=== PATIENT | female | born 1965 | race Caucasian/White ===

== ENCOUNTER → 2020-07-03 13:57 | Outpatient (BNVA) | payer SELFPAY | PROVIDERS: Family Provider Registered Nurse; PCP Nurse Practitioner Family; Visit Provider Nurse Practitioner Family | DX: K92.1 Melena (principal) | CPT/HCPCS: 82270 ==

== ENCOUNTER → 2020-08-30 17:20 | Outpatient (BNVA) | payer SELFPAY | PROVIDERS: Family Provider Registered Nurse; PCP Nurse Practitioner Family; Visit Provider Surgery | DX: Z20.828 Contact with and (suspected) exposure to other viral communicable diseases (principal); K92.1 Melena | CPT/HCPCS: 87635 ==

== ENCOUNTER 2020-09-04 05:53 | Day surgery (SDC) | payer SELFPAY ==
[2020-09-02 10:14] VITALS: BMI 21.9
[2020-09-04 06:16] VITALS: BP 156/117; PULSE 93; RESP 18; TEMP 36; O2SAT 94
--- NOTE | 2020-09-04 06:19 | W.PM.OPSUD ---
Surgery/Procedure H&P Update DATE OF PROCEDURE: September 04, 2020 DATE H&P PERFORMED: 08/08/20 H&P UPDATE INFORMATION: I have reviewed H&P completed within last 30 days, I have examined patient prior to procedure and No changes to prior documentation PREOP DIAGNOSIS: Bleeding per rectum/constipation PRIMARY INDICATION FOR PROCEDURE: The same PLANNED PROCEDURE: Operation Date: 09/04/20 07:00 Proposed Procedures p Colonoscopy 84750 K92.1(Not Applicable) - Sunny Mathias MD
[2020-09-04] MEDS: sodium chloride 0.9% 1,000 ML 30 ML IV (06:31)
--- NOTE | 2020-09-04 06:34 | ANES.PREANE2 ---
Pre-Anesthetic Assessment Pre-Anesthetic Assessment: Height/Weight: Height 1.7 m Weight 63.503 kg Temp Pulse Resp BP Pulse Ox 96.8 F L 93 18 156/117 94 09/04/20 06:16 09/04/20 06:16 09/04/20 06:16 09/04/20 06:16 09/04/20 06:16 Preop Diagnosis: Bleeding per rectum/constipation Proposed Procedure: Operation Date: 09/04/20 07:00 Proposed Procedures p Colonoscopy 82076 K92.1(Not Applicable) - Sunny Mathias MD Was Beta Mony taken within 24 hours: N/A Last intake: Intake Last Liquid Date 09/03/20 Last Liquid Time 23:59 Last Solid Date 09/02/20 Last Solid Time 22:00 Social: Social History: Tobacco and No alcohol Exam: Pre-Anes Outpt Exam: alert, oriented x 3 and regular rate & rhythm Additional Exam Findings (including area of procedure): BBS decreased Airway: Submandibular: WNL Cervical ROM: WNL MP: 2 Dentition: Full Pulmonary: Pulmonary: COPD CV/HEM: CV/HEM: HTN GI: Comments: GI bleeding Neuropsych: Neuropsych: Anxiety Anesthetic Plan: ASA status: 3 Anesthesia: MAC Risk of > 500 ml blood loss (7ml/kg in children): No Meds/Allergies Current Medications: Current Medications Generic Name Dose Route Start Last Admin Trade Name Freq PRN Reason Stop Dose Admin Sodium Chloride 1,000 mls @ 30 ml s/hr 09/04/20 06:15 09/04/20 06:31 Sodium Chloride 0.9% IV 30 mls/hr .Q24H JUAN Administration PFSH Anesthesia PFSH: Medical History HTN (hypertension), benign Laceration of knee without foreign body Surgical History Hx of oophorectomy left Hx of skin graft Family History Family/Other Cancer breast (aunt) Denies family history of Anesthesia complication Bleeding disorder Social History Smoking and tobacco status: current every day smoker Second hand smoke exposure: Yes Alcohol intake: current Alcohol intake frequency: 3 or more drinks per day Data Anesthesia Cardiac Studies: No Data to Display
[2020-09-04 07:14] VITALS: BP 138/98; PULSE 93; RESP 18; TEMP 36.5; O2SAT 97
[2020-09-04 07:27] VITALS: BP 171/105; PULSE 92; RESP 18; O2SAT 99
--- NOTE | 2020-09-04 07:41 | ANE.PACU2 ---
Inpatient post-anesthesia follow up: Airway intact: Yes Vital signs: Temperature 97.7 F Pulse Rate 92 Respiratory Rate 18 Blood Pressure 171/105 Pulse Oximetry 99 Oxygen Delivery Me thod Room Air Oxygen Flow Rate Fraction of Inspir ed Oxygen Hydration adequate: Yes Nausea and vomiting: No Pain level: 1 Mental status: Baseline
== END 2020-09-04 07:47 | disposition home or self-care (01) ==
PROVIDERS: Family Provider Registered Nurse; PCP Nurse Practitioner Family; Visit Provider Surgery
PROC: 0DJD8ZZ Inspection of Lower Intestinal Tract, Via Natural or Artificial Opening Endoscopic (ICD-10-PCS; CPT 45378; principal; 2020-09-04 07:00)
DX: K62.5 Hemorrhage of anus and rectum (principal); K59.00 Constipation, unspecified; K57.30 Diverticulosis of large intestine without perforation or abscess without bleeding; J44.9 Chronic obstructive pulmonary disease, unspecified; I10 Essential (primary) hypertension; F41.9 Anxiety disorder, unspecified; F17.210 Nicotine dependence, cigarettes, uncomplicated
CPT/HCPCS: 12345; 45378; J2704; J7030

== ENCOUNTER → 2021-08-06 11:10 | Outpatient (BNVA) | payer SELFPAY | PROVIDERS: Family Provider Registered Nurse; PCP Registered Nurse; Visit Provider Registered Nurse | DX: E78.5 Hyperlipidemia, unspecified (principal); I10 Essential (primary) hypertension | CPT/HCPCS: 80053; 80061; 85025 ==

== ENCOUNTER 2021-11-03 13:53 | Outpatient (CLI) | payer SELFPAY ==
--- NOTE | 2021-11-03 14:12 | MM_ITS ---
WS: [id number] Bilateral screening 3D tomosynthesis digital mammogram, 11/03/2021 Clinical Data: Z12.31 - Encounter for screening mammogram for malignant ... Comparison: 04/11/2019. Findings: The breast parenchymal pattern shows fibroglandular tissue. No spiculated masses or clustered calcif ications are seen. There are no secondary signs of carcinoma. MM/[place] [id number] Impression: 1. Negative bilateral mammogram unchanged. 2. Recommend annual screening mammograms. BIRADS: 1-Negative FOLLOW UP: 10 Month Follow-up The CAD photo checker and assembler was used.
== END 2021-11-03 13:54 | disposition home or self-care (01) ==
LOC: RADSHAW 13:58
PROVIDERS: PCP Registered Nurse; Visit Provider Registered Nurse
DX: Z12.31 Encounter for screening mammogram for malignant neoplasm of breast (principal)
CPT/HCPCS: 77063; 77067

== ENCOUNTER → 2022-06-02 14:56 | Outpatient (BNVA) | payer SELFPAY | PROVIDERS: PCP Registered Nurse; Visit Provider Registered Nurse | DX: I10 Essential (primary) hypertension (principal); E78.5 Hyperlipidemia, unspecified; Z71.85 Encounter for immunization safety counseling; F17.210 Nicotine dependence, cigarettes, uncomplicated; Z23 Encounter for immunization | CPT/HCPCS: 80053; 80061; 85025 ==

== ENCOUNTER 2023-10-07 19:51 | Inpatient (IN) | payer MEDICAID, SELFPAY ==
[2023-10-07] VITALS (8 sets, daily range): BP systolic 98–130; BP diastolic 56–112; PULSE 95–113; RESP 15–21; TEMP 36.7–37; O2SAT 98–100; BMI 25.8
--- NOTE | 2023-10-07 19:55 | XRR_ITS ---
PROCEDURE INFORMATION: Exam: XR Chest Exam date and time: 10/07/2023 8:16 PM Age: 58 years old Clinical indication: Cough TECHNIQUE: Imaging protocol: Radiologic exam of the chest. Views: 1 view. COMPARISON: No relevant prior studies available. FINDINGS: Lungs: No focal consolidation. Pleural spaces: No evidence of pneumothorax. No evidence of pleural effusion. Heart/Mediastinum: Cardiomediastinal silhouette is within normal limits. Bones/joints: No evidence of acute osseous abnormality. XR/XR chest 1V portable [id number] IMPRESSION: 1. No acute cardiopulmonary abnormality.
--- NOTE | 2023-10-07 19:55 | ECG_ITS ---
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 Measurements Intervals [place] Rate: 92 P: 49 MI: 192 QRS: 56 QRSD: 84 T: 67 QT: 377 QTc: 467 Interpretive Statements SINUS RHYTHM No previous ECG available for comparison Electronically Signed On 10-08-2023 10:02:34 PURCHASING MANAGER/SALES by Marcelino Tracy M.D. [id number]
--- NOTE | 2023-10-07 19:57 | W.ED.NAVMDI ---
HPI - Nausea/Vomiting/Diarrhea General: Chief complaint: Nausea/Vomiting/Diarrhea Stated complaint: N/V Time Seen by Provider: 10/07/23 19:51 Source: patient and EMS Mode of arrival: EMS Limitations: no limitations History of Present Illness: 58-year-old female states she has not felt well the last 3 days she states she has had cough along with nausea vomiting and fatigue with bodyaches she denies any fevers. States she had some slight chest pain as well but mainly when she coughs it is sharp in nature she denies any pain currently she had no belly pain. Denies any diarrhea. Associated nausea: Yes Associated symtoms: Reports chest pain and nausea; Denies dysuria or headache(s) Review of Systems Const: Denies: fever(s) or chills ENMT: Denies: throat pain or dental pain Card: Reports: chest pain Resp: Reports: dyspnea and non-productive cough GI: Reports: nausea and vomiting; Denies: abdominal pain or diarrhea : Denies: dysuria Musc: Denies: neck pain or back pain Skin/Breast: Denies: rash Neuro: Denies: headache(s) PFSH ED PFSH: Medical History Diverticulosis Hematochezia Laceration of knee without foreign body HTN (hypertension), benign Surgical History Hx of oophorectomy left Hx of skin graft Family History Family/Other Cancer breast (aunt) Denies family history of Anesthesia complication Bleeding disorder Social History Smoking and tobacco/nicotine status: current every day tobacco/nicotine user Second hand smoke exposure: Yes Alcohol intake: current Alcohol intake frequency: 3 or more drinks per day Substance/Drug Use: never Adopted: No Caregiver/support person: No Lives independently: Yes service: No Current occupational status: employed Do you think of yourself as: Straight/Heterosexual Current gender identity: Female Physical Exam Const: COMMON NORMALS: no acute distress, patient oriented x3 and healthy appearing HENMT: COMMON NORMALS: normocephalic and atraumatic HEAD & SCALP: normocephalic and atraumatic Neck/C-Spine: COMMON NORMALS: full ROM and supple Chest: COMMONS NORMALS: normal inspection of the chest and normal palpation of entire chest wall Resp: COMMON NORMALS: normal respiratory effort, No retractions, No use of accessory muscles and clear to auscultation bilaterally AUSCULTATION: clear to auscultation bilaterally Cardio: COMMON NORMALS: regular rate, regular rhythm and No murmurs present (Cardio) RATE: regular rate RHYTHM: regular rhythm GI: COMMON NORMALS: Normal to inspection, nondistended, normoactive bowel sounds present, Soft to palpation, non-tender and no masses PALPATION: Yes Soft to palpation Extremity: COMMON NORMALS: normal to inspection and full ROM Neuro: COMMON NORMALS: patient oriented x3, moves all extremities and no focal motor deficits Psych: COMMON NORMALS: mental status grossly normal, Normal thought process present and cooperative THOUGHT PROCESS: Normal thought process present Skin: COMMON NORMALS: no rashes or lesions noted and no wounds GENERAL SKIN EXAM: no rashes or lesions noted Course Vital Signs: Vital signs: Vital Signs Temperature 98.5 F 10/08/23 04:30 Pulse Rate 89 10/08/23 10:30 Respiratory Rate 20 H 10/08/23 10:30 Blood Pressure 85/43 10/08/23 10:30 Pulse Oximetry 100 10/08/23 10:30 Oxygen Delivery Me thod Room Air 10/08/23 06:00 MDM - Nausea/Vomiting/Diarrhea Medical Decision Making Patient presents here with nausea vomiting she is found to be quite hyponatremic likely due to her vomiting her abdominal exam here is benign white count is normal I spoke to the hospitalist will admit at this time to the ICU. Patient is been stable while here. Medical Records I reviewed the patient's medical records. Lab Data I reviewed the patient's lab results. 10/08/23 03:56 10/08/23 08:13 Radiology Impressions Chest X-Ray 10/07/23 19:55 IMPRESSION: 1. No acute cardiopulmonary abnormality. Head CT 10/07/23 22:16 IMPRESSION: No acute intracranial abnormality. Further evaluation with MR may be considered if there is persistent suspicion for early stroke or other significant abnormality. Laboratory Results WBC 6.73 10^3/uL (3.29-11.43) 10/07/23 20:11 RBC 3.18 10^6/uL (3.85-5.65) L 10/07/23 20:11 Hgb 12.10 g/dL (11.27-16.99) 10/07/23 20:11 Hct 31.3 % (36-47) L 10/07/23 20:11 MCV 98.4 fl (85-98) H 10/07/23 20:11 MCH 38.1 pg (27-33) H 10/07/23 20:11 MCHC 38.7 g/dL (30-55) 10/07/23 20:11 RDW 11.5 % (12.1-15.1) L 10/07/23 20:11 Plt Count 128 10^3/cmm (157-399) L 10/07/23 20:11 MPV 9.9 fL (7.4-10.4) 10/07/23 20:11 Neut % (Auto) 74.1 % 10/07/23 20:11 Lymph % (Auto) 15.2 % 10/07/23 20:11 Clinch % (Auto) 9.7 % 10/07/23 20:11 Eos % (Auto) 0.3 % 10/07/23 20:11 Baso % (Auto) 0.1 % 10/07/23 20:11 Neut # (Auto) 4.99 10^3/uL (1.8-7.7) 10/07/23 20:11 Lymph # (Auto) 1.0 10^3/uL (0.8-4.8) 10/07/23 20:11 Clinch # (Auto) 0.7 10^3/uL (0.2-0.9) 10/07/23 20:11 Eos # (Auto) 0.0 10^3/uL (0.0-0.8) 10/07/23 20:11 Baso # (Auto) 0.0 10^3/uL (0.0-0.1) 10/07/23 20:11 Nucleated RBC % (auto) 0 % 10/07/23 20:11 Nucleated RBCs # 0.0 /100WBC 10/07/23 20:11 PT 12.50 SECONDS (12.1-14.9) 10/07/23 20:11 INR 0.91 (0.8-1.2) 10/07/23 20:11 Sodium 106 mmol/L (136-145) L* 10/07/23 20:11 Potassium 3.4 mmol/L (3.5-5.1) L 10/07/23 20:11 Chloride 64 mmol/L (98-107) L 10/07/23 20:11 Carbon Dioxide 23 mmol/L (22-29) 10/07/23 20:11 Anion Gap 22.4 (5-19) H 10/07/23 20:11 BUN 22 mg/dL (6-20) H 10/07/23 20:11 Creatinine 0.8 mg/dL (0.5-0.9) 10/07/23 20:11 GFR Calculation 73.4 mL/min (90-130) L 10/07/23 20:11 Glucose 74 mg/dL (65-115) 10/07/23 20:11 Calculated Osmolality 224 mOsm/kg (285-295) L 10/07/23 20:11 Calcium 8.7 mg/dL (8.5-10.5) 10/07/23 20:11 Total Bilirubin 0.8 mg/dL (0.15-1.2) 10/07/23 20:11 AST 172 U/L (0-32) H 10/07/23 20:11 ALT 105 U/L (0-33) H 10/07/23 20:11 Alkaline Phosphatase 165 U/L (35-105) H 10/07/23 20:11 Creatine Kinase 106 U/L (26-192) 10/07/23 20:11 Creatine Kinase 116 U/L (26-192) 10/07/23 20:11 Troponin T Baseline 20 ng/L (0-10) H 10/07/23 20:11 Total Protein 7.0 g/dL (6.6-8.7) 10/07/23 20:11 Albumin 4.2 g/dL (3.5-5.2) 10/07/23 20:11 Globulin 2.8 g/dL (1.3-4.6) 10/07/23 20:11 Lipase 52 U/L (13-60) 10/07/23 20:11 Hepatitis A IgM Ab Non-reactive (Nonreactive) 10/07/23 20:11 Hep Bs Antigen Non-reactive (Nonreactive) 10/07/23 20:11 Hep B Core IgM Ab Non-reactive (Nonreactive) 10/07/23 20:11 Hepatitis C Antibody Non-reactive (Nonreactive) 10/07/23 20:11 Influenza Type A Ag negative (Negative) 10/07/23 20:21 Influenza Type B Ag negative (Negative) 10/07/23 20:21 SARS-CoV-2 Ag (Rapid) negative (Negative) 10/07/23 20:21 All radiology interpretation(s) finalized by discharge EKG Data EKG 1: I personally reviewed and interpreted this EKG as follows: EKG interpretation date: 10/07/23 EKG interpretation time: 20:02 Interpretation: nsr hr [address] or t wave abnormalities qrs 84 qtc 426 Critical Care Time Critical Care Time: Critical Care Time: Yes Total Critical Care Time: 40 Attestation: The high probability of a clinically significant, sudden or life threatening deterioration of the patient's electrolytes/gi system(s) required my full and direct attention, intervention and personal management. The critical care time is as shown. This time is in addition to time spent performing any reported procedures but includes the following: [x] Data and vital sign review and interpretation [x] Patient assessment, examination and intervention [x] Documentation [x] Medication orders and management Discharge Plan Discharge Patient Disposition: Admitted As Inpatient Admit Provider: Chema Ayers Clinical Impression: Vomiting, Hyponatremia Condition: Stable Coding Level of Care Code ED Plant And Maintenance Technician for Wilder Barrientos
[2023-10-07] MEDS: sodium chloride 0.9% 1,000 ML 999 ML IV (20:13)
[2023-10-07] MEDS: ondansetron 2 mg/ML SDV 2 mL 4 MG IVP ×2 (20:14→23:16)
[2023-10-07 20:38] LABS: Basophils % 0.1 %; Eosinophils % 0.3 %; Mean Corpuscular Volume 98.4 fl (85-98); Nucleated Red Blood Cells % 0 %; Red Cell Distribution Width 11.5 % (12.1-15.1)
[2023-10-07 20:44] LABS: Influenza A by IFA negative (Negative); Influenza B by IFA negative (Negative); SARS Covid-2 Antigen negative (Negative)
[2023-10-07 20:48] LABS: Alanine Aminotransferase 105 U/L (0-33); Albumin Level 4.2 g/dL (3.5-5.2); Alkaline Phosphatase 165 U/L (35-105); Anion Gap 22.4 (5-19); Aspartate Amino Transferase 172 U/L (0-32); Blood Urea Nitrogen 22 mg/dL (6-20); Calcium 8.7 mg/dL (8.5-10.5); Carbon Dioxide 23 mmol/L (22-29); Chloride 64 mmol/L (98-107); Globulin 2.8 g/dL (1.3-4.6); Glomerular Filtration Rate 73.4 mL/min (90-130); Glucose 74 mg/dL (65-115); Lipase 52 U/L (13-60); Osmolality Calculated 224 mOsm/kg (285-295); Potassium 3.4 mmol/L (3.5-5.1); Total Bilirubin 0.8 mg/dL (0.15-1.2)
[2023-10-07 20:50] LABS: Sodium 106 mmol/L (136-145)
[2023-10-07 20:52] LABS: Troponin(5th) Baseline 20 ng/L (0-10)
[2023-10-07 21:14] LABS: Hematocrit 31.3 % (36-47); Lymphocytes % 15.2 %; Mean Corpuscular HGB Conc 38.7 g/dL (30-55); Mean Corpuscular Hemoglobin 38.1 pg (27-33); Mean Platelet Volume 9.9 fL (7.4-10.4); Monocytes # 0.7 10^3/uL (0.2-0.9); Monocytes % 9.7 %; Neutrophils # 4.99 10^3/uL (1.8-7.7); Neutrophils % 74.1 %; Platelet Count 128 10^3/cmm (157-399); Red Blood Count 3.18 10^6/uL (3.85-5.65); White Blood Count 6.73 10^3/uL (3.29-11.43)
[2023-10-07 21:24] LABS: Slide Review Slide Review Perform
--- NOTE | 2023-10-07 22:00 | PC.NURSE ---
Arrival to ICU: Pt arrived to ICU 10 @2200 from ER via stretcher. Continuos cardiac monitoring continued and seizure precautions initiated.
[2023-10-07 22:01] LABS: Creatine Phosphokinase 116 U/L (26-192)
--- NOTE | 2023-10-07 22:16 | CTR_ITS ---
PROCEDURE INFORMATION: Exam: CT Head Without Contrast Exam date and time: 10/07/2023 11:50 PM Age: 58 years old Clinical indication: Other: Sev hyponatremia, vomiting TECHNIQUE: Imaging protocol: Computed tomography of the head without contrast. Radiation optimization: All CT scans at this facility use at least one of these dose optimization techniques: automated exposure control; mA and/or kV adjustment per patient size (includes targeted exams where dose is matched to clinical indication); or iterative reconstruction. COMPARISON: No relevant prior studies available. RADIATION DOSE METRICS: Total DLP (mGy-cm): 1100 FINDINGS: Brain: Mild to moderate diffuse atrophy of the frontal and parietal lobes. Mild chronic microvascular cerebral parenchymal change. No obvious central pontine hypodensity. Cerebral ventricles: No ventriculomegaly. Paranasal sinuses: Visualized sinuses are unremarkable. No fluid levels. Mastoid air cells: Visualized mastoid air cells are well aerated. Bones/joints: Unremarkable. No acute fracture. Soft tissues: Unremarkable. CT/CT head wo con* [id number] IMPRESSION: No acute intracranial abnormality. Further evaluation with MR may be considered if there is persistent suspicion for early stroke or other significant abnormality.
[2023-10-07 22:29] LABS: INR 0.91 (0.8-1.2)
[2023-10-07 22:42] LABS: Troponin 5 2HR 22.25 ng/L (0-10); Troponin 5 2HR Delta 2.25 ABS# (0-10)
[2023-10-07 22:42] LABS: Creatine Phosphokinase 106 U/L (26-192)
[2023-10-07 22:49] LABS: Hepatitis A Antibody IgM Non-Reactive (Nonreactive); Hepatitis B Core IgM Non-Reactive (Nonreactive); Hepatitis B Surface Antigen Non-Reactive (Nonreactive); Hepatitis C Virus Antibody Non-Reactive (Nonreactive)
[2023-10-07 22:50] LABS: Thyroid Stimulating Hormone 1.38 uIU/mL (0.27-4.20)
[2023-10-07 22:52] LABS: Sodium 106 mmol/L (136-145)
--- NOTE | 2023-10-07 22:55 | PC.NURSE ---
Critical Sodium: Attempted to notify [facility] of critical sodium @1941. No answer, message left. Notified Dr. Ayers of critical sodium, new order to start NS @15ml/hr and wait for orders from nephrology.
[2023-10-07] MEDS: pantoprazole 40 mg SDV IVP (22:59)
--- NOTE | 2023-10-07 23:01 | P.HP_ITS ---
Providers/Chief Complaint 2 Admitting Physician: Chema Ayers Primary Care Provider: SOBEIDA Dhaliwal Chief Complaint: N/V History of Present Illness Pleasant 58-year-old lady with history of hyponatremia, previously on salt tablets but has been off of them for some time, HTN, daily EtOH, about 3 drinks per day, has been feeling unwell, has had nausea vomiting, unable to keep anything down and some diarrhea for 4 days. Mild cough. Was also complaining of some heartburn some burning chest pain in the center. Some malaise. In ER found to have severe hyponatremia, sodium 106. She received 1 L saline resuscitation. With noted some transaminitis, AST 172, ALT 105, alk phos 165, lipase was also checked was 52. TSH is WNL. She is awake, alert, provides her own history. Lucid. Denies anyheadache. EKG with sinus rhythm. Chest x-ray without acute cardiopulmonary abnormality. Review of Systems 2 Const: Denies: fever(s), chills, body aches or malaise Card: Denies: chest pain, edema, pre-syncope or dyspnea on exertion Resp: Denies: dyspnea, productive cough, change in phlegm color or hemoptysis GI: Reports: nausea, vomiting and diarrhea; Denies: abdominal pain, constipation, hematochezia or melena : Denies: flank pain, urinary frequency or hematuria Musc: Denies: back pain, joint swelling or joint redness Skin/Breast: Denies: rash or new lesions Neuro: Denies: headache(s) or confusion Endo: Denies: polyuria or polydipsia Medications/Allergies Home Medications Medication Instructions Recorded Confirmed Last Taken Type lisinopril 20 mg tablet See Rx Instructions .Route 08/17/23 10/07/23 10/06/23 Rx .COMPLEX #60 tabs hydrochlorothiazide 25 mg tablet See Rx Instructions .Route 08/20/23 10/07/23 10/04/23 Rx .COMPLEX #90 tabs metoprolol tartrate 25 mg tablet 25 mg PO BEDTIME 90 days #90 tabs 08/20/23 10/07/23 10/07/23 Rx Allergies Allergy/AdvReac Type Severity Reaction Status Date / Time No Known Allergies Allergy Verified 08/20/23 14:18 PFSH Acute 2 PFSH: Medical History Diverticulosis Hematochezia Laceration of knee without foreign body HTN (hypertension), benign Surgical History Hx of oophorectomy left Hx of skin graft Family History Family/Other Cancer breast (aunt) Denies family history of Anesthesia complication Bleeding disorder Social History Smoking and tobacco/nicotine status: current every day tobacco/nicotine user Second hand smoke exposure: Yes Alcohol intake: current Alcohol intake frequency: 3 or more drinks per day Substance/Drug Use: never Adopted: No Caregiver/support person: No Lives independently: Yes service: No Current occupational status: employed Do you think of yourself as: Straight/Heterosexual Current gender identity: Female Vitals/I&O/Wt Last Vital Signs Temp 98.6 F 10/07/23 22:15 Pulse 113 H 10/07/23 22:15 Resp 18 10/07/23 22:15 BP 110/76 10/07/23 22:15 Pulse Ox 100 10/07/23 22:15 O2 Del Method Room Air 10/07/23 22:15 10/07/23 10/07/23 10/08/23 14:59 22:59 06:59 Intake Total 1000 / 1000 Balance 1000 / 1000 Weight last 48 hrs Weight 74.843 kg Weight 70.307 kg Physical Exam 2 Const: COMMON NORMALS: patient oriented x3 and alert GENERAL APPEARANCE: c ooperative ORIENTATION/CONSCIOUSNESS: Yes awake HENMT: COMMON NORMALS: oropharynx normal Neck/C-Spine: COMMON NORMALS: no JVD Resp: COMMON NORMALS: normal respiratory effort and clear to auscultation bilaterally AUSCULTATION: clear to auscultation bilaterally Cardio: COMMON NORMALS: no JVD, regular rhythm, S1 normal heart sound present, S2 normal heart sound present and No murmurs present (Cardio) RHYTHM: regular rhythm HEART SOUNDS: S1 normal heart sound present and S2 normal heart sound present GI: COMMON NORMALS: Normal to inspection, nondistended, normoactive bowel sounds present, Soft to palpation and non-tender PALPATION: Yes Soft to palpation Extremity: COMMON NORMALS: no joint enlargement and no pedal edema Neuro: COMMON NORMALS: patient oriented x3 and moves all extremities S ENSORIUM/ORIENTATION: Yes alert Skin: COMMON NORMALS: no rashes or lesions noted GENERAL SKIN EXAM: no rashes or lesions noted Data 10/07/23 20:11 10/07/23 22:13 A&P Assessment and plan (1) Hyponatremia: Severe hyponatremia, 106, likely multifactorial with HCTZ, nausea, vomiting, hypovolemia. Risk of severe complications, risk of brain edema. Discussed with her we will want to raise slowly to avoid risk of ODS. Received 1 L fluid bolus in ER. Reviewed vitals, CBC, INR, CMP, TSH, ER note, discussed with ER provider, discussed with entry level sales consultant. Hold off additional fluids for now. Recheck sodium is requested. With nausea and vomiting we will additionally check CT of the head. Discontinue HCTZ. She was previously on sodium chloride tablets but has been off of them for some time. Encourage EtOH abstinence. Check urine sodium, urine osm. (2) Gastroenteritis: Gastroenteritis with nausea and vomiting, possibly EtOH induced gastritis, but does have diarrhea as well. Check COVID-19 PCR. Maintain isolation for now. Bowel rest for now, sips, chips, meds. PPI. Zofran as needed for nausea. (3) Transaminitis: Transaminitis with AST and ALT in 2-1 pattern, alk phos elevation somewhat chronic, currently 165, slightly worse. T. bili is normal. Discussed with her possible alcohol-induced hepatitis. Requested INR. Normal. Good prognosis by Madrey discriminant function. No need for steroids at this time. Checked CK as well and is normal. (4) Hypomagnesemia: Severe hypomagnesemia, requested replacement for gram at this time. Recheck magnesium. Replace hypokalemia. (5) Cigarette smoker: Discussed with her for 3-1/2 minutes. Encouraged cessation, she states has been smoking less recently. She is agreeable to nicotine patch, lozenges as needed. Continue to encourage cessation (6) Daily consumption of alcohol: Encouraged complete abstinence from alcohol. She states used to drink more in the past. Currently about 3 drinks per day. Did have history of withdrawal in the past after was trying to stop drinking after DWI. Encouraged complete cessation, discussed with her we may provide some resources for her to help with quitting, but she declines at the moment, states has attended rehabilitation in the area and is aware of the resources. Start thiamine, focus, multivitamin, with history of withdrawal, monitor for withdrawal, CIWA protocol, benzodiazepines per CIWA. Complicated with EtOH induced gastritis, EtOH hepatitis as above. (7) Troponin level elevated: Mild elevation of troponin, 20, 22.25. Has had some burning central chest discomfort this seems to be more GERD, possibly [place] tear after vomiting. PPI. Tylenol as needed. However, with coronary artery disease risk factors will complete troponin Giurgius series. Monitor on telemetry. Obtain TTE. Will subsequently benefit from additional risk stratification with stress testing. Add aspirin for now. Check lipid profile. Blood pressure soft for beta-xiomara for now. Reassess, resume if may tolerate. (8) Thrombocytopenia: Incidentally noted, cytopenia, would suspect secondary to EtOH, recheck platelets. Plan HTN: Blood pressure currently soft. Hold antihypertensives. Attestations 2 Medical Necessity Statement*: Admission of over 2 midnights anticipated for assessment management of severe hyponatremia Coding Level of Care Code Critical Care >/= 30 minutes Critical care time (in minutes): 35 The high probability of a clinically significant, sudden or life threatening deterioration, as referenced in this documentation, required my full and direct attention, intervention and personal management. The critical care time shown is in addition to time spent performing any reported separately billable procedures and includes the following: [x] Data and vital sign review and interpretation [x ] Patient assessment, examination and intervention [x] Medication orders and management [x] Patient/Family updates as able [x] Care Coordination and Documentation. Diagnoses Hyponatremia E87.1 Gastroenteritis K52.9 Transaminitis R74.01 Hypomagnesemia E83.42 Cigarette smoker F17.210 Daily consumption of alcohol Z78.9 Troponin level elevated R79.89 Thrombocytopenia D69.6
[2023-10-07] MEDS: heparin 5,000 unit/mL INJ 1 mL 5000 UNIT SUBCUT (23:04)
[2023-10-07] MEDS: potassium chloride ER 20 mEq Tablet 40 MEQ PO (23:06)
[2023-10-07] MEDS: nicotine 14 mg Patch 1 PATCH TRANSDERMA (23:24)
[2023-10-07] MEDS: magnesium sulfate premix 4 GM/100 ML PREMIX IV (23:29)
[2023-10-08] VITALS (46 sets, daily range): BP systolic 80–124; BP diastolic 43–76; PULSE 83–137; RESP 12–23; TEMP 36.7–36.9; O2SAT 93–100
[2023-10-08] MEDS: sodium chloride 0.9% 1,000 ML 15 ML IV (00:30)
[2023-10-08 01:32] LABS: Sodium 106 mmol/L (136-145)
--- NOTE | 2023-10-08 01:43 | PC.NURSE ---
Critical Sodium: Called [facility] @1408 to report Na 106. No answer, message left. Dr. Rodriguez aware.
--- NOTE | 2023-10-08 01:54 | PC.NURSE ---
3% Saline: Dr. Ribeiro called unit @0153. New order to start 3% saline @25ml/hr, recheck labs @4am.
[2023-10-08 02:14] LABS: Adenovirus Not Detected (NOT DETECT); Chlamydia Pneumoniae Not Detected (NOT DETECT); Coronavirus 229E,HKU1,NL63,OC4 Not Detected (NOT DETECT); Human Metapneumovirus Not Detected (NOT DETECT); Human Rhinovirus/Enterovirus Not Detected (NOT DETECT); Influenza A Not Detected (NOT DETECT); Influenza A H1 Not Detected (NOT DETECT); Influenza A H1-2009 Not Detected (NOT DETECT); Influenza A H3 Not Detected (NOT DETECT); Influenza B Not Detected (NOT DETECT); Mycoplasma Pneumoniae Not Detected (NOT DETECT); Parainfluenza Virus Type 1 Not Detected (NOT DETECT); Parainfluenza Virus Type 2 Not Detected (NOT DETECT); Parainfluenza Virus Type 3 Not Detected (NOT DETECT); Parainfluenza Virus Type 4 Not Detected (NOT DETECT); Respiratory Syncytial Virus A Not Detected (NOT DETECT); Respiratory Syncytial Virus B Not Detected (NOT DETECT); SARS-COV-2 Not Detected (NOT DETECT)
[2023-10-08 02:30] LABS: Troponin 5 6HR 25.51 ng/L (0-10); Troponin 5 6HR Delta 5.51 ng/L (0-12)
[2023-10-08] MEDS: sodium chloride 3% 500 ML 25 ML IV (02:30)
[2023-10-08 04:24] LABS: Basophils % 0.1 %; Eosinophils % 0.1 %; Hematocrit 30.2 % (36-47); Lymphocytes # 1.1 10^3/uL (0.8-4.8); Lymphocytes % 14.8 %; Mean Corpuscular HGB Conc 37.4 g/dL (30-55); Mean Corpuscular Hemoglobin 38.2 pg (27-33); Monocytes # 0.7 10^3/uL (0.2-0.9); Monocytes % 10.3 %; Neutrophils # 5.35 10^3/uL (1.8-7.7); Neutrophils % 74.3 %; Nucleated Red Blood Cells % 0 %; Platelet Count 123 10^3/cmm (157-399); Red Blood Count 2.96 10^6/uL (3.85-5.65); Red Cell Distribution Width 11.7 % (12.1-15.1); White Blood Count 7.21 10^3/uL (3.29-11.43)
[2023-10-08 04:37] LABS: Add Urine Microscopic? NO; Bilirubin Urine Neg (Negative); Blood Urine Neg (Negative); Charge for UA Resulting for Rev; Glucose Urine UA Norm (Normal); Ketones Urine 1+ (Negative); Leukocyte Esterase Urine Negative (Negative); Nitrate Urine Negative (Negative); Protein Urine Neg (Negative); Specific Gravity, Urine 1.015 (1.005-1.030); Urine Appearance Clear (CLEAR); Urine Color Yellow (Yellow); Urobilinogen Urine Neg (Negative); pH Urine 5 (5-7)
[2023-10-08 04:42] LABS: Alanine Aminotransferase 85 U/L (0-33); Albumin Level 3.8 g/dL (3.5-5.2); Alkaline Phosphatase 155 U/L (35-105); Aspartate Amino Transferase 129 U/L (0-32); Blood Urea Nitrogen 20 mg/dL (6-20); Calcium 8.2 mg/dL (8.5-10.5); Carbon Dioxide 21 mmol/L (22-29); Chloride 71 mmol/L (98-107); Globulin 2.3 g/dL (1.3-4.6); Glomerular Filtration Rate 64.1 mL/min (90-130); Glucose 72 mg/dL (65-115); Osmolality Calculated 227 mOsm/kg (285-295); Total Protein 6.1 g/dL (6.6-8.7)
[2023-10-08 04:43] LABS: Magnesium 2.8 mg/dL (1.7-2.3)
[2023-10-08 04:44] LABS: Chol HDL Ratio 1.55 mg/dL (0.0-4.40); Cholesterol 158 mg/dL (0-200); HDL Cholesterol 102 mg/dL (60-100); LDL Cholesterol Calculated 46 mg/dL (50-129); LDL HDL Ratio 0.45 RATIO (0.00-3.22); Triglycerides 52 mg/dL (0-150)
[2023-10-08 04:51] LABS: Sodium 108 mmol/L (136-145)
[2023-10-08 04:55] LABS: Urine Random Sodium 12 mmol/L
[2023-10-08] MEDS: acetaminophen 325 mg Tablet 650 MG PO (04:59)
--- NOTE | 2023-10-08 08:20 | US_ITS ---
WS: [id number] RIGHT UPPER QUADRANT ULTRASOUND HISTORY: gallbladder and liver COMPARISON: None available. Liver: 15.2 cm in length. Poorly visualized liver in its entirety. Mild hepatic steatosis. Portal Vein: Normal hepatopetal flow with monophasic waveform. Gallbladder: Normally distended gallbladder with no stones or wall thickening. CBD: 0.4 cm Pancreas: Normal size and echogenicity. Right kidney: 9.5 cm in length. Normal size and echogenicity. No hydronephrosis or mass. Aorta and IVC: Unremarkable abdominal aorta and IVC. No ascites. IMPRESSION: 1. Mild hepatic steatosis. 2. Normal gallbladder. 3. No bile duct dilatation.
[2023-10-08 09:00] LABS: Alcohol Level < 10 mg/dL (0-10)
[2023-10-08] MEDS: lidocaine 2% viscous 15 ML, aluminum-mag hydrox-simethicon 30 ML, sucralfate oral liq 1 GM PO (09:00)
[2023-10-08 09:02] LABS: Sodium 111 mmol/L (136-145)
[2023-10-08] MEDS: folic acid 1 mg Tablet PO (09:03)
[2023-10-08] MEDS: aspirin 81 mg EC Tablet PO (09:03)
[2023-10-08] MEDS: multivitamin therapeutic Tablet 1 TAB PO (09:03)
[2023-10-08] MEDS: thiamine 100 mg Tablet PO (09:04)
[2023-10-08] MEDS: pantoprazole 40 mg SDV IVP ×2 (09:04→20:41)
[2023-10-08] MEDS: sodium chloride 3% 100 ML in empty flexible container 1 EACH 200 ML IV (09:50)
[2023-10-08 10:14] LABS: Amphetamines Screen Urine Negative (Negative); Barbiturates Screen Urine Negative (Negative); Benzodiazepines Screen Urine Negative (Negative); Cocaine Screen Urine Negative (Negative); Opiate Screen Urine Negative (Negative); PCP Screen Urine Negative (Negative); THC Screen Urine Negative (Negative)
[2023-10-08] MEDS: FUROsemide 10 mg/mL SDV 2mL 20 MG IVP (10:55)
[2023-10-08] MEDS: heparin 5,000 unit/mL INJ 1 mL 5000 UNIT SUBCUT ×2 (10:55→20:41)
[2023-10-08 12:12] LABS: Sodium 114 mmol/L (136-145)
--- NOTE | 2023-10-08 12:39 | ECG_ITS ---
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 Measurements Intervals [place] Rate: 94 P: 45 NV: 194 QRS: 69 QRSD: 91 T: 39 QT: 366 QTc: 458 Interpretive Statements SINUS RHYTHM LOW QRS VOLTAGE IN PRECORDIAL LEADS [QRS DEFLECTION < 1.0 mV IN CHEST LEADS] Compared to ECG 10/08/2023 14:08:06 Low QRS voltage now present Electronically Signed On 10-08-2023 23:45:44 FERTILIZER SUPERVISOR by Marcelino Tracy M.D. [id number]
--- NOTE | 2023-10-08 13:09 | P.CONIM_ITS ---
Providers/Reason For Consult 2 Consulting Physician/Specialty*: Sandy Mccray D.O., telemedicine Reason for Consult*: hyponatremia Requesting Physician: Alfredo Alston MD Attending Physician: Alfredo Alston MD Primary Care Provider: SOBEIDA Dhaliwal History of Present Illness History of Present Illness Kathy Hopson is a 58 year old female presented for evaluation N/V/D x 4 days. + epigastric heartburn pain + history hyponatremia, serum Na 130 in 2021; discontinued NaCl tablets 6 months ago, Hctz started for hypertension Review of Systems 2 Const: Reports: other (feeling better) GI: Reports: heartburn Medications/Allergies Home Medications Medication Instructions Recorded Confirmed Last Taken Type lisinopril 20 mg tablet See Rx Instructions .Route 08/17/23 10/07/23 10/06/23 Rx .COMPLEX #60 tabs hydrochlorothiazide 25 mg tablet See Rx Instructions .Route 08/20/23 10/07/23 10/04/23 Rx .COMPLEX #90 tabs metoprolol tartrate 25 mg tablet 25 mg PO BEDTIME 90 days #90 tabs 08/20/23 10/07/23 10/07/23 Rx Allergies Allergy/AdvReac Type Severity Reaction Status Date / Time No Known Allergies Allergy Verified 08/20/23 14:18 Current Medications Generic Name Dose Route Start Last Admin Trade Name Freq PRN Reason Stop Dose Admin Acetaminophen 650 mg 10/07/23 22:14 10/08/23 04:59 Acetaminophen 325 Mg Tablet PO 650 mg Q6H PRN Administration Mild/Mod Pain Or Temp >/= 101 Aspirin 81 mg 10/08/23 09:00 10/08/23 09:03 Aspirin 81 Mg Ec Tablet PO 81 mg DAILY JUAN Administration Folic Acid 1 mg 10/08/23 09:00 10/08/23 09:03 Folic Acid 1 Mg Tablet PO 1 mg DAILY JUAN Administration Heparin Sodium (Porcine) 5,000 unit 10/07/23 23:00 10/08/23 10:55 Heparin 5,000 Unit/Ml Inj 1 Ml SUBCUT 5,000 unit Q12H JUAN Administration Sodium Chloride 500 mls @ 10 mls/hr 10/08/23 02:00 10/08/23 12:16 Sodium Chloride 3% IV 0 mls/hr .Q24H JUAN Infusion Multivitamins Therapeutic 1 tab 10/08/23 09:00 10/08/23 09:03 Multivitamin Therapeutic Tablet PO 1 tab DAILY JUAN Administration Nicotine 1 patch 10/07/23 23:15 10/07/23 23:24 Nicotine 14 Mg Patch TRANSDERMA 1 patch Q24H JUAN Administration Ondansetron HCl 4 mg 10/07/23 22:14 10/07/23 23:16 Ondansetron 2 Mg/Ml Sdv 2 Ml IVP 4 mg Q4H PRN Administration vomiting, or N/V if npo Pantoprazole Sodium 40 mg 10/08/23 08:45 10/08/23 09:04 Pantoprazole 40 Mg Sdv IVP 40 mg Q12H JUAN Administration Thiamine Mononitrate 100 mg 10/08/23 09:00 10/08/23 09:04 Thiamine 100 Mg Tablet PO 100 mg DAILY JUAN Administration PFSH Acute 2 PFSH: Medical History Diverticulosis Hematochezia Laceration of knee without foreign body HTN (hypertension), benign Surgical History Hx of oophorectomy left Hx of skin graft Family History Family/Other Cancer breast (aunt) Denies family history of Anesthesia complication Bleeding disorder Social History Smoking and tobacco/nicotine status: current every day tobacco/nicotine user Second hand smoke exposure: Yes Alcohol intake: current Alcohol intake frequency: 3 or more drinks per day Substance/Drug Use: never Adopted: No Caregiver/support person: No Lives independently: Yes service: No Current occupational status: employed Do you think of yourself as: Straight/Heterosexual Current gender identity: Female Vitals/I&O/Wt Last Vital Signs Temp 98.5 F 10/08/23 04:30 Pulse 90 10/08/23 11:30 Resp 14 10/08/23 11:30 BP 117/69 10/08/23 11:30 Pulse Ox 99 10/08/23 11:30 O2 Del Method Room Air 10/08/23 06:00 10/07/23 10/08/23 10/08/23 22:59 06:59 14:59 Intake Total 1000 / 1000 260.833 / 1260.833 125.833 / 125.833 Output Total 350 / 350 350 / 350 Balance 1000 / 1000 -89.167 / 910.833 -224.167 / -224.167 Weight last 48 hrs Weight 75.387 kg Weight 74.843 kg Weight 70.307 kg Physical Exam 2 Const: COMMON NORMALS: no acute distress and alert Extremity: NARRATIVE EXTREMITY EXAM: no edema Neuro: SENSORIUM/ORIENTATION: Yes alert Data 10/08/23 03:56 10/08/23 18:55 Echo: Radiologist's impression: LV is hyperdynamic with EF of 65-70% Grade 1 diastolic dysfunction. Moderate left ventricular hypertrophy seen. Mild mitral regurgitation. Possible systolic anterior motion of mitral valve is seen. Dynamic LVOT obstruction is noted. Peak gradient is 15 mmHg at rest. On CW doppler dagger shaped doppler signal with peak velocity of 6.7m/s. Peak gradient increased to 179mmHg. Moderate aortic stenosis with mean gradient of 22 mmHg. Aortic valve area of 1.19 cm squared. Possible contamination of doppler signal with LVOT gradient. Other data: seen via telemedicine with assitance of RN at bedside A&P Assessment and plan (1) Hyponatremia: Plan 1. Hyponatremia, chronic, likely SIADH, worsened by recent N/V/D, Hctz Serum sodium now 120 mEq/L, will give D5W overnight to prevent overcorrection Resume NaCL oral tablets if stable in AM. Do not resume Hctz Consult Attestations 2 Medical Necessity Statement: see above Time Spent in Patient Care: 16 - 35 minutes Coding Level of Care Code Acute Code for Chg Fwd Diagnoses Hyponatremia E87.1
[2023-10-08 14:00] LABS: Troponin 5 2HR 21.48 ng/L (0-10)
[2023-10-08 14:01] LABS: Troponin 5 2HR Delta 0.48 ABS# (0-10)
[2023-10-08 14:01] LABS: Troponin(5th) Baseline 21 ng/L (0-10)
--- NOTE | 2023-10-08 14:39 | ECG_ITS ---
[facility] Test Date: 2023-10-08 Pat Name: Kathy Hopson Department: Room: ICU10 Gender: Female Nutrition Educator: : 1965 Requested By: Alfredo Alston Order Number: [id number] Fadumo MD: Marcelino Tracy M.D. Measurements Intervals [place] Rate: 97 P: 27 DE: 184 QRS: 4 QRSD: 82 T: 42 QT: 367 QTc: 467 Interpretive Statements SINUS RHYTHM Compared to ECG 10/07/2023 20:05:12 No significant changes Electronically Signed On 10-08-2023 23:47:18 ASSISTANT PROFESSOR OF ENGLISH by Marcelino Tracy M.D. [id number]
--- NOTE | 2023-10-08 14:49 | P.PN_ITS ---
Subjective 2 Subjective: Patient was seen this morning, she does report chest discomfort, with a burning sensation, she thinks it might be acid reflux, but it persists, no fevers, no chills, no cough, no abdominal pain, she is alert oriented x 3, following all commands, no headache, no blurry vision, Vitals/I&O/Wt Last Vital Signs Temp 98.5 F 10/08/23 04:30 Pulse 90 10/08/23 11:30 Resp 14 10/08/23 11:30 BP 117/69 10/08/23 11:30 Pulse Ox 99 10/08/23 11:30 O2 Del Method Room Air 10/08/23 06:00 10/07/23 10/08/23 10/08/23 22:59 06:59 14:59 Intake Total 1000 / 1000 260.833 / 1260.833 125.833 / 125.833 Output Total 350 / 350 950 / 950 Balance 1000 / 1000 -89.167 / 910.833 -824.167 / -824.167 Weight last 48 hrs Weight 75.387 kg Weight 74.843 kg Weight 70.307 kg Physical Exam 2 Const: COMMON NORMALS: no acute distress and patient oriented x3 Resp: COMMON NORMALS: normal respiratory effort, No retractions, No use of accessory muscles and clear to auscultation bilaterally AUSCULTATION: clear to auscultation bilaterally Cardio: COMMON NORMALS: regular rate, regular rhythm, S1 normal heart sound present and S2 normal heart sound present RATE: regular rate RHYTHM: r egular rhythm HEART SOUNDS: S1 normal heart sound present and S2 normal heart sound present GI: COMMON NORMALS: Normal to inspection, nondistended, normoactive bowel sounds present and non-tender Extremity: COMMON NORMALS: no pedal edema Neuro: COMMON NORMALS: patient oriented x3 Psych: COMMON NORMALS: mental status grossly normal Data 10/08/23 03:56 10/08/23 11:37 A&P Assessment and plan (1) Hyponatremia: Severe hyponatremia, 106, likely multifactorial with HCTZ, nausea, vomiting, hypovolemia. -Has received hypertonic saline bolus, hypertonic saline at 25 cc an hour, -Serum sodium 114, spoke to nephrology hold hypertonic saline -Sodium has been corrected roughly 9 mEq in the last 24 hours -Continue to monitor serum sodiums -Monitor mentation -Neurochecks, mini stroke scale (2) Gastroenteritis: Gastroenteritis with nausea and vomiting, -NPO, sips and chips (3) Transaminitis: - Likely alcohol induced transaminitis -Gallbladder and right upper quadrant ultrasound (4) Hypomagnesemia: Monitor (5) Cigarette smoker: (6) Daily consumption of alcohol: [facility] protocol (7) Troponin level elevated: No chest pain complaints Serial EKGs, serial troponins, telemetry monitoring Does complain of recurrent chest pain, monitor monitor closely (8) Thrombocytopenia: Incidentally noted, cytopenia, would suspect secondary to EtOH, recheck platelets. (9) HOCM (hypertrophic obstructive cardiomyopathy): CONCLUSIONS LV is hyperdynamic with EF of 65-70% Grade 1 diastolic dysfunction. Moderate left ventricular hypertrophy seen. Mild mitral regurgitation. Possible systolic anterior motion of mitral valve is seen. Dynamic LVOT obstruction is noted. Peak gradient is 15 mmHg at rest. On CW doppler dagger shaped doppler signal with peak velocity of 6.7m/s. Peak gradient increased to 179mmHg. Moderate aortic stenosis with mean gradient of 22 mmHg. Aortic valve area of 1.19 cm squared. Possible contamination of doppler signal with LVOT gradient. No comparison studies are available. -Started on low-dose beta-blockers -Monitor heart rate, Attestations 2 Medical Necessity Statement*: Patient requires hospitalization for hypertrophic obstructive cardiomyopathy, severe hyponatremia, elevated troponins, Diagnoses Hyponatremia E87.1 Gastroenteritis K52.9 Transaminitis R74.01 Hypomagnesemia E83.42 Cigarette smoker F17.210 Daily consumption of alcohol Z78.9 Troponin level elevated R79.89 Thrombocytopenia D69.6 HOCM (hypertrophic obstructive cardiomyopathy) I42.1
[2023-10-08] MEDS: metoprolol tartrate 25 mg Tablet 6.25 MG PO (16:18)
[2023-10-08 17:43] LABS: Sodium 116 mmol/L (136-145)
--- NOTE | 2023-10-08 18:31 | ECG_ITS ---
[facility] Test Date: 2023-10-08 Pat Name: Kathy Hopson Department: Room: ICU10 Gender: Female Airborne Operations: : 1965 Requested By: Alfredo Alston Order Number: [id number] Fadumo MD: Marcelino Tracy M.D. Measurements Intervals [place] Rate: 90 P: 6 AR: 197 QRS: -8 QRSD: 80 T: 21 QT: 382 QTc: 468 Interpretive Statements SINUS RHYTHM LOW QRS VOLTAGE IN PRECORDIAL LEADS [QRS DEFLECTION < 1.0 mV IN CHEST LEADS] POSSIBLE ANTERIOR MYOCARDIAL INFARCTION , PROBABLY OLD [30 ms Q WAVE IN V3/V4, OR R < 0.2 mV IN V4] Compared to ECG 10/08/2023 15:36:22 Myocardial infarct finding now present Electronically Signed On 10-08-2023 23:46:05 MANAGER BRANCH by Marcelino Tracy M.D. [id number]
[2023-10-08] MEDS: calcium carbonate 500 mg Chew Tablet PO (18:40)
[2023-10-08 19:48] LABS: Troponin 5 6HR 20.41 ng/L (0-10)
[2023-10-08 19:53] LABS: Troponin 5 6HR Delta -0.59 ng/L (0-12)
[2023-10-08 20:10] LABS: Sodium 120 mmol/L (136-145)
[2023-10-08] MEDS: nicotine 14 mg Patch 1 PATCH TRANSDERMA (20:41)
[2023-10-08] MEDS: LORazepam 2 mg Tablet PO (20:42)
[2023-10-08] MEDS: dextrose 5% 1,000 ML 50 ML IV (21:03)
--- NOTE | 2023-10-08 23:13 | USCV_ITS ---
Mark Anthony Kathy Age: 58 Gender: F : 1965 Exam Date: 10/08/2023 01:32 Ordering Phys: Chema Ayers MD Technologist: SWATHI [place]am [place] [facility] [place] [facility] [place] Indication: chest burning / pain No history of cardiac intervention per patient. Note: Pt admits frequent near syncope when bends over BP: 110 / 76 HR: 99 Rhythm: Sinus Technical Quality: Adequate MEASUREMENTS (Male / Female) Normal Values 2D ECHO LV Diastolic Diameter PLAX 3.9 cm 4.2 - 5.9 / 3.9 - 5.3 cm IVS Diastolic Thickness 1.5 cm 0.6 - 1.0 / 0.6 - 0.9 cm IVS Systolic Thickness 2.2 cm LVPW Diastolic Thickness 1.3 cm 0.6 - 1.0 / 0.6 - 0.9 cm LVPW Systolic Thickness 1.6 cm LVOT Diameter 1.4 cm LV Ejection Fraction 2D Teich 65.9 % LV Ejection Fraction MOD 2C 66.8 % IVC Diameter 1.6 cm DOPPLER AV Area Cont Eq vti 0.8 cm squared AV Area Cont Eq pk 1.0 cm squared MV Area PHT 4.6 cm squared Mitral E to A Ratio 0.7 Right Atrial Pressure 5.0 mmHg FINDINGS Left Ventricle Left ventricle is normal in size. LV is hyperdynamic with a EF of 65 to 70%. No regional wall motion abnormalities seen. Grade 1 diastolic dysfunction. Moderate left ventricular hypertrophy seen. Right Ventricle Normal in size and function Right Atrium Normal in size Left Atrium Normal in size Mitral Valve Structurally normal mitral valve. Mild mitral regurgitation. Possible systolic anterior motion of mitral valve is seen Aortic Valve Structurally normal aortic valve. Dynamic LVOT obstruction is noted. Peak gradient is 15 mmHg at baseline. LVOT peak velocity increases to 6.7m/s with dagger shaped doppler signal. Peak gradient inceases to 179mmHg. Moderate aortic stenosis with mean gradient of 22 mmHg and aortic valve area 1.19 cm2 Tricuspid Valve Mild tricuspid regurgitation. Pulmonic Valve Not well visualized Pericardium Normal Aorta Normal in size IVC Appears to be normal CONCLUSIONS LV is hyperdynamic with EF of 65-70% Grade 1 diastolic dysfunction. Moderate left ventricular hypertrophy seen. Mild mitral regurgitation. Possible systolic anterior motion of mitral valve is seen. Dynamic LVOT obstruction is noted. Peak gradient is 15 mmHg at rest. On CW doppler dagger shaped doppler signal with peak velocity of 6.7m/s. Peak gradient increased to 179mmHg. Moderate aortic stenosis with mean gradient of 22 mmHg. Aortic valve area of 1.19 cm squared. Possible contamination of doppler signal with LVOT gradient. No comparison studies are available. Marcelino Tracy MD (Electronically Signed) Final Date: 08 October 2023 09:28 S
[2023-10-09] VITALS (31 sets, daily range): BP systolic 76–138; BP diastolic 42–82; PULSE 70–116; RESP 14–26; TEMP 36.5–37.2; O2SAT 90–100
[2023-10-09 01:10] LABS: Sodium 116 mmol/L (136-145)
--- NOTE | 2023-10-09 01:25 | PC.NURSE ---
Informed Dr Ayers of decreased sodium level. Received instruction to hold d5 for now.
[2023-10-09] MEDS: metoprolol tartrate 25 mg Tablet 6.25 MG PO (01:32)
[2023-10-09 05:17] LABS: Basophils % 0.2 %; Eosinophils % 0.2 %; Hematocrit 30.4 % (36-47); Lymphocytes # 1.1 10^3/uL (0.8-4.8); Lymphocytes % 24.9 %; Mean Corpuscular HGB Conc 36.2 g/dL (30-55); Mean Corpuscular Hemoglobin 38.1 pg (27-33); Mean Corpuscular Volume 105.2 fl (85-98); Mean Platelet Volume 9.5 fL (7.4-10.4); Monocytes # 0.6 10^3/uL (0.2-0.9); Neutrophils # 2.83 10^3/uL (1.8-7.7); Nucleated Red Blood Cells % 0 %; Platelet Count 99 10^3/cmm (157-399); Red Blood Count 2.89 10^6/uL (3.85-5.65); White Blood Count 4.57 10^3/uL (3.29-11.43)
[2023-10-09 05:45] LABS: Magnesium 2.1 mg/dL (1.7-2.3)
[2023-10-09 06:02] LABS: Alanine Aminotransferase 80 U/L (0-33); Albumin Level 3.7 g/dL (3.5-5.2); Alkaline Phosphatase 135 U/L (35-105); Aspartate Amino Transferase 120 U/L (0-32); Blood Urea Nitrogen 17 mg/dL (6-20); Calcium 8.7 mg/dL (8.5-10.5); Carbon Dioxide 26 mmol/L (22-29); Chloride 81 mmol/L (98-107); Globulin 2.3 g/dL (1.3-4.6); Glomerular Filtration Rate 64.1 mL/min (90-130); Glucose 83 mg/dL (65-115); Osmolality Calculated 251 mOsm/kg (285-295); Sodium 120 mmol/L (136-145); Total Bilirubin 0.6 mg/dL (0.15-1.2)
--- NOTE | 2023-10-09 06:57 | PM.PN ---
Subjective Subjective: feels well, states she is drinking lots of water ... because its good for her Vitals/I&O/Wt Last Vital Signs Temp 97.7 F 10/09/23 05:00 Pulse 70 10/09/23 06:00 Resp 15 10/09/23 06:00 BP 111/71 10/09/23 06:00 Pulse Ox 97 10/09/23 06:00 O2 Del Method Room Air 10/09/23 05:00 10/08/23 10/08/23 10/09/23 14:59 22:59 06:59 Intake Total 125.833 / 125.833 340 / 465.833 458.333 / 924.166 Output Total 950 / 950 2100 / 3050 300 / 3350 Balance -824.167 / -824.167 -1760 / -2584.167 158.333 / -2425.834 Weight last 48 hrs Weight 76.2 kg Weight 75.387 kg Weight 74.843 kg Weight 70.307 kg Physical Exam Const: COMMON NORMALS: no acute distress and alert Extremity: NARRATIVE EXTREMITY EXAM: no edema Neuro: SENSORIUM/ORIENTATION: Yes alert Data 10/09/23 04:00 10/09/23 11:11 Other data: seen via telemedicine with assistance of RN at bedside A&P Assessment and plan (1) Hyponatremia: Plan 1. Hyponatremia, chronic, likely SIADH, worsened by recent N/V/D, Hctz Increase NaCl to 1 g TID, fluid restrict, will add furosemide 20 mg daily Do not resume Hctz Attestations Medical Necessity Statement*: see above Time Spent in Patient Care: 16 - 35 minutes Coding Level of Care Code [facility] Hyponat[facility] E87.1
--- NOTE | 2023-10-09 07:21 | PC.NURSE ---
Patient educated on fall risk, seizure risk, and call light use. Patient found to be ambulating in room with telemetry in place. Patient educated again to use call light before getting out of bed for safety.
[2023-10-09] MEDS: thiamine 100 mg Tablet PO (08:27)
[2023-10-09] MEDS: aspirin 81 mg EC Tablet PO (08:27)
[2023-10-09] MEDS: folic acid 1 mg Tablet PO (08:27)
[2023-10-09] MEDS: pantoprazole 40 mg SDV IVP ×2 (08:27→20:49)
[2023-10-09] MEDS: sodium chloride 1 gm Tablet PO ×3 (08:27→20:44)
[2023-10-09] MEDS: multivitamin therapeutic Tablet 1 TAB PO (08:27)
[2023-10-09 09:36] LABS: Sodium 119 mmol/L (136-145)
[2023-10-09] MEDS: heparin 5,000 unit/mL INJ 1 mL 5000 UNIT SUBCUT ×2 (11:11→23:38)
[2023-10-09 12:04] LABS: Sodium 118 mmol/L (136-145)
--- NOTE | 2023-10-09 12:18 | PC.NURSE ---
Notified Dr. Alston of critical sodium level, trending down, low blood pressures MAP below 65. Orders to continue to monitor blood pressure, lactic level, nephrology increasing salt tablets and orders for fluid restrict.
[2023-10-09] MEDS: FUROsemide 20 mg Tablet PO (13:10)
--- NOTE | 2023-10-09 15:39 | P.PN_ITS ---
Subjective 2 Subjective: Patient was seen this morning, she is alert oriented x 3, following all commands, no fevers, chills, no cough discussed her serum sodium levels improving to 120 we will hold off on further hypertonic saline continue to monitor, Vitals/I&O/Wt Last Vital Signs Temp 98.7 F 10/09/23 12:00 Pulse 114 H 10/09/23 15:00 Resp 23 H 10/09/23 15:00 BP 88/64 10/09/23 15:00 Pulse Ox 100 10/09/23 14:00 O2 Del Method Room Air 10/09/23 14:00 10/09/23 10/09/23 10/09/23 06:59 14:59 22:59 Intake Total 458.333 / 924.166 340 / 340 Output Total 300 / 3350 Balance 158.333 / -2425.834 340 / 340 Weight last 48 hrs Weight 76.2 kg Weight 75.387 kg Weight 74.843 kg Weight 70.307 kg Physical Exam 2 Const: COMMON NORMALS: no acute distress and patient oriented x3 Resp: COMMON NORMALS: normal respiratory effort, No retractions, No use of accessory muscles and clear to auscultation bilaterally AUSCULTATION: clear to auscultation bilaterally Cardio: COMMON NORMALS: regular rate, regular rhythm, S1 normal heart sound present and S2 normal heart sound present RATE: regular rate RHYTHM: r egular rhythm HEART SOUNDS: S1 normal heart sound present and S2 normal heart sound present GI: COMMON NORMALS: Normal to inspection, nondistended, normoactive bowel sounds present and non-tender Extremity: COMMON NORMALS: no pedal edema Neuro: COMMON NORMALS: patient oriented x3 Psych: COMMON NORMALS: mental status grossly normal Data 10/09/23 04:00 10/09/23 11:11 A&P Assessment and plan (1) Hyponatremia: Severe hyponatremia, 120, likely multifactorial with HCTZ, nausea, vomiting, hypovolemia. -Has received hypertonic saline bolus, hypertonic saline at 25 cc an hour, -Serum sodium 120, spoke to nephrology hold hypertonic saline, started on salt tablets -Continue to monitor serum sodiums -Monitor mentation -Neurochecks, (2) Gastroenteritis: Gastroenteritis with nausea and vomiting, -NPO, sips and chips (3) Transaminitis: - Likely alcohol induced transaminitis -Gallbladder and right upper quadrant ultrasound (4) Hypomagnesemia: Monitor (5) Cigarette smoker: (6) Daily consumption of alcohol: [facility] protocol (7) Troponin level elevated: No chest pain complaints Serial EKGs, serial troponins, telemetry monitoring Does complain of recurrent chest pain, monitor monitor closely (8) Thrombocytopenia: Incidentally noted, cytopenia, would suspect secondary to EtOH, recheck platelets. (9) HOCM (hypertrophic obstructive cardiomyopathy): CONCLUSIONS LV is hyperdynamic with EF of 65-70% Grade 1 diastolic dysfunction. Moderate left ventricular hypertrophy seen. Mild mitral regurgitation. Possible systolic anterior motion of mitral valve is seen. Dynamic LVOT obstruction is noted. Peak gradient is 15 mmHg at rest. On CW doppler dagger shaped doppler signal with peak velocity of 6.7m/s. Peak gradient increased to 179mmHg. Moderate aortic stenosis with mean gradient of 22 mmHg. Aortic valve area of 1.19 cm squared. Possible contamination of doppler signal with LVOT gradient. No comparison studies are available. -Started on low-dose beta-blockers -Monitor heart rate, Plan Blood pressures are soft, continue to monitor blood pressures throughout the day, Attestations 2 Medical Necessity Statement*: Patient requires hospitalization for hyponatremia, soft blood pressures, hokum Diagnoses Hyponatremia E87.1 Gastroenteritis K52.9 Transaminitis R74.01 Hypomagnesemia E83.42 Cigarette smoker F17.210 Daily consumption of alcohol Z78.9 Troponin level elevated R79.89 Thrombocytopenia D69.6 HOCM (hypertrophic obstructive cardiomyopathy) I42.1
[2023-10-09 16:00] LABS: Lactate (Lactic Acid level) 3.6 mmol/L (0.5-2.2)
--- NOTE | 2023-10-09 17:14 | PC.NURSE ---
Spoke with Dr. Alston about patient low blood pressures, Verbal order for Midodrine 5mg PO TID received.
[2023-10-09 17:19] LABS: Sodium 117 mmol/L (136-145)
--- NOTE | 2023-10-09 17:27 | PC.NURSE ---
Spoke with Dr. Mccray regarding patient sodium level decreasing over this shift. Verbal order for 100ml 3% NS.
[2023-10-09] MEDS: sodium chloride 3% 100 ML in empty flexible container 1 EACH 200 ML IV (17:39)
[2023-10-09] MEDS: midodrine 5 mg TABLET PO (20:44)
[2023-10-09 22:28] LABS: Lactate (Lactic Acid level) 2.4 mmol/L (0.5-2.2)
[2023-10-09 22:30] LABS: Sodium 121 mmol/L (136-145)
[2023-10-09] MEDS: albumin 50 G/200 ML BAG 60 G IV (23:34)
[2023-10-09] MEDS: nicotine 14 mg Patch 1 PATCH TRANSDERMA (23:35)
[2023-10-10] VITALS (30 sets, daily range): BP systolic 86–131; BP diastolic 44–90; PULSE 82–129; RESP 12–24; TEMP 36.6–37.1; O2SAT 90–100
--- NOTE | 2023-10-10 00:29 | PC.NURSE ---
Addendum entered by Halle Moura RN 10/10/23 02:24: Dr. Ayers notified of soft BP, MAP 65 @0210 and order for Metoprolol @0245, order to not give 0245 Metoprolol dose. Original Note: Low BP: Dr. Ayers notified @approximatly 2220. New order to preform [place] and give albumin. PLR preformed- SVI 19.6%.
[2023-10-10 05:04] LABS: Positive C 1
[2023-10-10 05:06] LABS: Basophils % 0.5 %; Eosinophils % 0.5 %; Hematocrit 24.7 % (36-47); Lymphocytes # 1.2 10^3/uL (0.8-4.8); Lymphocytes % 31.3 %; Mean Corpuscular HGB Conc 35.6 g/dL (30-55); Mean Corpuscular Hemoglobin 37.8 pg (27-33); Mean Platelet Volume 9.9 fL (7.4-10.4); Monocytes # 0.5 10^3/uL (0.2-0.9); Monocytes % 11.9 %; Neutrophils # 2.19 10^3/uL (1.8-7.7); Neutrophils % 55.3 %; Nucleated Red Blood Cells % 0 %; Platelet Count 111 10^3/cmm (157-399); Red Blood Count 2.33 10^6/uL (3.85-5.65); Red Cell Distribution Width 11.9 % (12.1-15.1); White Blood Count 3.96 10^3/uL (3.29-11.43)
[2023-10-10 05:13] LABS: INR 0.95 (0.8-1.2)
[2023-10-10 05:20] LABS: Magnesium 1.7 mg/dL (1.7-2.3)
[2023-10-10 05:26] LABS: Procalcitonin 0.14 ng/mL (0-0.5)
[2023-10-10 05:29] LABS: C Reactive Protein 11.6 mg/L (0.0-4.9); Creatine Phosphokinase 35 U/L (26-192)
[2023-10-10 05:31] LABS: Alanine Aminotransferase 58 U/L (0-33); Albumin Level 4.2 g/dL (3.5-5.2); Alkaline Phosphatase 130 U/L (35-105); Anion Gap 11.3 (5-19); Aspartate Amino Transferase 76 U/L (0-32); Blood Urea Nitrogen 21 mg/dL (6-20); Calcium 8.7 mg/dL (8.5-10.5); Carbon Dioxide 28 mmol/L (22-29); Chloride 86 mmol/L (98-107); Globulin 1.8 g/dL (1.3-4.6); Glomerular Filtration Rate 64.1 mL/min (90-130); Glucose 113 mg/dL (65-115); Osmolality Calculated 258 mOsm/kg (285-295); Potassium 3.3 mmol/L (3.5-5.1); Sodium 122 mmol/L (136-145); Total Bilirubin 0.5 mg/dL (0.15-1.2)
[2023-10-10 05:32] LABS: NT Pro B Type Natriuretic Pept 941 pg/mL (0-125)
[2023-10-10] MEDS: pantoprazole 40 mg SDV IVP ×2 (07:13→21:16)
[2023-10-10] MEDS: potassium chloride ER 20 mEq Tablet 40 MEQ PO (07:13)
[2023-10-10] MEDS: aspirin 81 mg EC Tablet PO (08:01)
[2023-10-10] MEDS: midodrine 5 mg TABLET PO ×3 (08:01→21:17)
[2023-10-10] MEDS: sodium chloride 1 gm Tablet PO ×3 (08:01→21:17)
[2023-10-10] MEDS: folic acid 1 mg Tablet PO (08:01)
[2023-10-10] MEDS: multivitamin therapeutic Tablet 1 TAB PO (08:01)
[2023-10-10] MEDS: thiamine 100 mg Tablet PO (08:01)
[2023-10-10] MEDS: heparin 5,000 unit/mL INJ 1 mL 5000 UNIT SUBCUT ×2 (11:07→23:40)
--- NOTE | 2023-10-10 12:08 | P.PN_ITS ---
Subjective 2 Subjective: - Overnight patient had soft blood press ures, with tachycardia, was given albumin, this morning her maps around 65 heart rates in the 100-110, denies any chest pain, no palpitations, no lightheadedness, no dizziness, serum sodiums are improving, she is alert oriented x 3, Vitals/I&O/Wt Last Vital Signs Temp 97.9 F 10/10/23 07:30 Pulse 108 H 10/10/23 10:00 Resp 15 10/10/23 09:30 BP 99/62 10/10/23 10:00 Pulse Ox 100 10/10/23 10:00 O2 Del Method Room Air 10/10/23 08:30 10/09/23 10/10/23 10/10/23 22:59 06:59 14:59 Intake Total 322 / 662 400 / 1062 118 / 118 Output Total 750 / 750 400 / 1150 Balance -428 / -88 0 / -88 118 / 118 Weight last 48 hrs Weight 76.2 kg Physical Exam 2 Const: COMMON NORMALS: no acute distress and patient oriented x3 Resp: COMMON NORMALS: normal respiratory effort, No retractions, No use of accessory muscles and clear to auscultation bilaterally AUSCULTATION: clear to auscultation bilaterally Cardio: COMMON NORMALS: S1 normal heart sound present and S2 normal heart sound present RATE: tachycardic HEART SOUNDS: S1 normal heart sound present and S2 normal heart sound present OTHER: Systolic murmur GI: COMMON NORMALS: Normal to inspection, nondistended, normoactive bowel sounds present and non-tender Extremity: COMMON NORMALS: no pedal edema Neuro: COMMON NORMALS: patient oriented x3 Psych: COMMON NORMALS: mental status grossly normal Data 10/10/23 03:39 10/10/23 03:39 A&P Assessment and plan (1) Hyponatremia: Severe hyponatremia, 122, likely multifactorial with HCTZ, nausea, vomiting, hypovolemia. -Has received hypertonic saline bolus, hypertonic saline at 25 cc an hour, -Serum sodium 122, spoke to nephrology hold hypertonic saline, started on salt tablets -Continue to monitor serum sodiums -Monitor mentation -Neurochecks, (2) Gastroenteritis: Gastroenteritis with nausea and vomiting, (3) Transaminitis: - Likely alcohol induced transaminitis -Gallbladder and right upper quadrant ultrasound (4) Hypomagnesemia: Monitor (5) Cigarette smoker: (6) Daily consumption of alcohol: [facility] protocol (7) Troponin level elevated: No chest pain complaints Serial EKGs, serial troponins, telemetry monitoring Does complain of recurrent chest pain, monitor monitor closely (8) Thrombocytopenia: Incidentally noted, cytopenia, would suspect secondary to EtOH, recheck platelets. (9) HOCM (hypertrophic obstructive cardiomyopathy): CONCLUSIONS LV is hyperdynamic with EF of 65-70% Grade 1 diastolic dysfunction. Moderate left ventricular hypertrophy seen. Mild mitral regurgitation. Possible systolic anterior motion of mitral valve is seen. Dynamic LVOT obstruction is noted. Peak gradient is 15 mmHg at rest. On CW doppler dagger shaped doppler signal with peak velocity of 6.7m/s. Peak gradient increased to 179mmHg. Moderate aortic stenosis with mean gradient of 22 mmHg. Aortic valve area of 1.19 cm squared. Possible contamination of doppler signal with LVOT gradient. No comparison studies are available. Discussed with cardiology, given low blood pressures and tachycardia and intolerance to beta-xiomara we will try low-dose verapamil Will moved to cardiac stepdown unit Currently also on midodrine Plan Blood pressures are soft, continue to monitor blood pressures throughout the day, Attestations 2 Medical Necessity Statement*: Patient requires hospitalization for hyponatremia serum sodium 122, hypertrophic obstructive cardiomyopathy with tachycardia, low blood pressures requiring verapamil and titration of verapamil monitoring and CSU, Diagnoses Hyponatremia E87.1 Gastroenteritis K52.9 Transaminitis R74.01 Hypomagnesemia E83.42 Cigarette smoker F17.210 Daily consumption of alcohol Z78.9 Troponin level elevated R79.89 Thrombocytopenia D69.6 HOCM (hypertrophic obstructive cardiomyopathy) I42.1
[2023-10-10 13:32] LABS: Sodium 127 mmol/L (136-145)
--- NOTE | 2023-10-10 14:11 | PC.NURSE ---
Report called to CSU, room 105. Patient ambulated to wheelchair for transport, on room air, no complaints, belongings placed in two bags, phone and test lab technician in patients purse. Patient had no questions, paper chart transferred with patient.
--- NOTE | 2023-10-10 16:39 | P.PN_ITS ---
Subjective 2 Subjective: no new c/o Medications: Reviewed: Yes Vitals/I&O/Wt Last Vital Signs Temp 97.8 F 10/10/23 16:00 Pulse 91 10/10/23 16:00 Resp 22 H 10/10/23 16:00 BP 127/90 10/10/23 16:00 Pulse Ox 93 10/10/23 16:00 O2 Del Method Room Air 10/10/23 16:00 10/10/23 10/10/23 10/10/23 06:59 14:59 22:59 Intake Total 400 / 1062 318 / 318 Output Total 400 / 1150 200 / 200 Balance 0 / -88 118 / 118 Weight last 48 hrs Weight 76.2 kg Physical Exam 2 Const: COMMON NORMALS: no acute distress and alert Extremity: NARRATIVE EXTREMITY EXAM: no edema Neuro: SENSORIUM/ORIENTATION: Yes alert Data 10/10/23 03:39 10/10/23 13:02 A&P Assessment and plan (1) Hyponatremia: Plan 1. Hyponatremia, chronic, likely SIADH, worsened by recent N/V/D, Hctz Increase NaCl to 1 g TID, fluid restrict, added furosemide 20 mg daily Do not resume Hctz Attestations 2 Medical Necessity Statement*: per medicine Coding Level of Care Code Acute Code for [facility] Diagnoses Hyponatremia E87.1
[2023-10-10] MEDS: nicotine 14 mg Patch 1 PATCH TRANSDERMA (23:38)
[2023-10-11] VITALS (8 sets, daily range): BP systolic 111–137; BP diastolic 72–93; PULSE 78–110; RESP 15–20; TEMP 36.8–37.2; O2SAT 94–99
[2023-10-11 04:04] LABS: Basophils % 0.4 %; Eosinophils % 0.8 %; Lymphocytes # 1.7 10^3/uL (0.8-4.8); Lymphocytes % 34.5 %; Mean Corpuscular HGB Conc 34.6 g/dL (30-55); Mean Platelet Volume 9.6 fL (7.4-10.4); Monocytes # 0.5 10^3/uL (0.2-0.9); Monocytes % 10.7 %; Neutrophils # 2.55 10^3/uL (1.8-7.7); Neutrophils % 52.4 %; Nucleated Red Blood Cells % 0 %; Platelet Count 117 10^3/cmm (157-399); Red Blood Count 2.43 10^6/uL (3.85-5.65); Red Cell Distribution Width 12.1 % (12.1-15.1); White Blood Count 4.87 10^3/uL (3.29-11.43)
[2023-10-11 04:21] LABS: Alanine Aminotransferase 102 U/L (0-33); Alkaline Phosphatase 127 U/L (35-105); Anion Gap 13.4 (5-19); Aspartate Amino Transferase 165 U/L (0-32); Blood Urea Nitrogen 13 mg/dL (6-20); Calcium 8.9 mg/dL (8.5-10.5); Carbon Dioxide 25 mmol/L (22-29); Chloride 93 mmol/L (98-107); Glomerular Filtration Rate 85.6 mL/min (90-130); Glucose 89 mg/dL (65-115); Osmolality Calculated 264 mOsm/kg (285-295); Potassium 4.4 mmol/L (3.5-5.1); Sodium 127 mmol/L (136-145); Total Bilirubin 0.4 mg/dL (0.15-1.2)
[2023-10-11 04:29] LABS: Lactate (Lactic Acid level) 0.7 mmol/L (0.5-2.2)
[2023-10-11] MEDS: pantoprazole 40 mg SDV IVP (08:19)
[2023-10-11] MEDS: folic acid 1 mg Tablet PO (08:20)
[2023-10-11] MEDS: aspirin 81 mg EC Tablet PO (08:20)
[2023-10-11] MEDS: multivitamin therapeutic Tablet 1 TAB PO (08:20)
[2023-10-11] MEDS: midodrine 5 mg TABLET PO (08:20)
[2023-10-11] MEDS: thiamine 100 mg Tablet PO (08:20)
[2023-10-11] MEDS: sodium chloride 1 gm Tablet PO (08:20)
--- NOTE | 2023-10-11 09:38 | P.DS_ITS ---
Discharge Providers Date of Admission: 10/07/23 21:40 Date of Discharge: October 11, 2023 Attending Provider at Admission: Chema Ayers Attending Provider at Discharge: Mingo Romero MD Consults: Nephrology Primary Care Provider: SOBEIDA Dhaliwal Diagnoses at Discharge Discharge Diagnosis (1) Hyponatremia: Status: Acute Reason for Visit Reason for Visit: N/V Hospital Course Hospital Course Kathy Hopson is a 58-year-old female with past medical history significant for alcohol use, hyponatremia, and tobacco use disorder who presented with generalized unwell feeling, nausea and vomiting, found to have severe acute on chronic hyponatremia. Nephrology was consulted and followed. Hydrochlorothiazide was discontinued. She received education regarding alcohol cessation. She was treated with salt tabs and titration of other medications. Sodium level significantly improved. Echocardiogram was concerning for possible HOCM. She was treated with verapamil and her home beta-xiomara was continued. Patient referred to cardiology at discharge. Patient discharged home in stable condition. She will follow-up with her primary care provider within 1 week with repeat labs. Physical Exam Narrative: General: Patient is awake and alert. Head: Normocephalic. Atraumatic. EOM intact. Neck: No JVD. Cardiovascular: RRR. No gallops. Lungs: Clear to auscultation, no use of accessory muscles, no crackles or wheezes. Skin: No jaundice. No rashes. Abdomen: Normal bowel sounds, abdomen soft and nontender. Genito Urinary: Genital exam not performed since complaints not related. Rectal: Rectal exam not performed since no symptoms indicated blood loss. Extremities: No cyanosis or clubbing. Musculoskeletal: 5/5 strength, normal range of motion, no swollen or erythematous joints. Neurological: Moves all 4 extremities. No myoclonus. Discharge Data Studies Completed and Pending Completed Studies During Hospitalization Category Date Time Status CT head wo con* [id number] Routine Cat Scan 10/07/23 22:16 Completed CXRP [XR chest 1V portable [id number]] Stat Exams 10/07/23 19:55 Completed CV. echo complete* [id number] Routine Ultrasound 10/08/23 23:13 Completed US abdomen limited [id number] Routine Ultrasound 10/08/23 08:20 Completed Pending at discharge Category Date Time Status Complete Blood Count w/Auto AM LABS Lab 10/12/23 04:00 Ordered Complete Blood Count w/Auto AM LABS Lab 10/13/23 04:00 Ordered Comprehensive Metabolic Panel AM LABS Lab 10/12/23 04:00 Ordered Comprehensive Metabolic Panel AM LABS Lab 10/13/23 04:00 Ordered Lactate (Lactic Acid level) AM LABS Lab 10/12/23 04:00 Ordered Osmolality Urine Routine Lab 10/08/23 04:29 Received Radiology Impressions Chest X-Ray 10/07/23 19:55 IMPRESSION: 1. No acute cardiopulmonary abnormality. Head CT 10/07/23 22:16 IMPRESSION: No acute intracranial abnormality. Further evaluation with MR may be considered if there is persistent suspicion for early stroke or other significant abnormality. Laboratory Results WBC 4.87 10^3/uL (3.29-11.43) 10/11/23 03:20 RBC 2.43 10^6/uL (3.85-5.65) L 10/11/23 03:20 Hgb 9.00 g/dL (11.27-16.99) L 10/11/23 03:20 Hct 26.0 % (36-47) L 10/11/23 03:20 MCV 107.0 fl (85-98) H 10/11/23 03:20 MCH 37.0 pg (27-33) H 10/11/23 03:20 MCHC 34.6 g/dL (30-55) 10/11/23 03:20 RDW 12.1 % (12.1-15.1) 10/11/23 03:20 Plt Count 117 10^3/cmm (157-399) L 10/11/23 03:20 MPV 9.6 fL (7.4-10.4) 10/11/23 03:20 Neut % (Auto) 52.4 % 10/11/23 03:20 Lymph % (Auto) 34.5 % 10/11/23 03:20 [place] % (Auto) 10.7 % 10/11/23 03:20 Eos % (Auto) 0.8 % 10/11/23 03:20 Baso % (Auto) 0.4 % 10/11/23 03:20 Neut # (Auto) 2.55 10^3/uL (1.8-7.7) 10/11/23 03:20 Lymph # (Auto) 1.7 10^3/uL (0.8-4.8) 10/11/23 03:20 [place] # (Auto) 0.5 10^3/uL (0.2-0.9) 10/11/23 03:20 Eos # (Auto) 0.0 10^3/uL (0.0-0.8) 10/11/23 03:20 Baso # (Auto) 0.0 10^3/uL (0.0-0.1) 10/11/23 03:20 Nucleated RBC % (auto) 0 % 10/11/23 03:20 Nucleated RBCs # 0.0 /100WBC 10/11/23 03:20 PT 13.00 SECONDS (12.1-14.9) 10/10/23 03:39 INR 0.95 (0.8-1.2) 10/10/23 03:39 Sodium 127 mmol/L (136-145) L 10/11/23 03:20 Potassium 4.4 mmol/L (3.5-5.1) 10/11/23 03:20 Chloride 93 mmol/L (98-107) L 10/11/23 03:20 Carbon Dioxide 25 mmol/L (22-29) 10/11/23 03:20 Anion Gap 13.4 (5-19) 10/11/23 03:20 BUN 13 mg/dL (6-20) 10/11/23 03:20 Creatinine 0.7 mg/dL (0.5-0.9) 10/11/23 03:20 GFR Calculation 85.6 mL/min (90-130) L 10/11/23 03:20 Glucose 89 mg/dL (65-115) 10/11/23 03:20 Calculated Osmolality 264 mOsm/kg (285-295) L 10/11/23 03:20 Lactate 0.7 mmol/L (0.5-2.2) 10/11/23 03:20 Calcium 8.9 mg/dL (8.5-10.5) 10/11/23 03:20 Magnesium 1.7 mg/dL (1.7-2.3) 10/10/23 03:39 Total Bilirubin 0.4 mg/dL (0.15-1.2) 10/11/23 03:20 AST 165 U/L (0-32) H 10/11/23 03:20 ALT 102 U/L (0-33) H 10/11/23 03:20 Alkaline Phosphatase 127 U/L (35-105) H 10/11/23 03:20 Creatine Kinase 35 U/L (26-192) 10/10/23 03:39 Troponin T Baseline 21 ng/L (0-10) H 10/08/23 11:37 Troponin T 120 Minute 21.48 ng/L (0-10) H 10/08/23 13:06 Delta Troponin T 0.48 ABS# (0-10) 10/08/23 13:06 Troponin T Hi Sens 6Hr 20.41 ng/L (0-10) H 10/08/23 18:55 Troponin T Hi Sens 6Hr Delta -0.59 ng/L (0-12) L 10/08/23 18:55 C-Reactive Protein 11.6 mg/L (0.0-4.9) H 10/10/23 03:39 NT-Pro-B Natriuret Pep 941 pg/mL (0-125) H 10/10/23 03:39 Total Protein 6.0 g/dL (6.6-8.7) L 10/11/23 03:20 Albumin 4.0 g/dL (3.5-5.2) 10/11/23 03:20 Globulin 2.0 g/dL (1.3-4.6) 10/11/23 03:20 Triglycerides 52 mg/dL (0-150) 10/08/23 03:56 Cholesterol 158 mg/dL (0-200) 10/08/23 03:56 LDL Cholesterol, Calc 46 mg/dL (50-129) L 10/08/23 03:56 HDL Cholesterol 102 mg/dL (60-100) H 10/08/23 03:56 LDL/HDL Ratio 0.45 RATIO (0.00-3.22) 10/08/23 03:56 Cholesterol/HDL Ratio 1.55 mg/dL (0.0-4.40) 10/08/23 03:56 Lipase 52 U/L (13-60) 10/07/23 20:11 Procalcitonin 0.14 ng/mL (0-0.5) 10/10/23 03:39 TSH 1.38 uIU/mL (0.27-4.20) 10/07/23 22:13 Urine Color Yellow (Yellow) 10/08/23 04:29 Urine Appearance Clear (CLEAR) 10/08/23 04:29 Urine pH 5 (5-7) 10/08/23 04:29 Ur Specific [place] 1.015 (1.005-1.030) 10/08/23 04:29 Urine Protein Neg (Negative) 10/08/23 04:29 Urine Glucose (UA) Norm (Normal) 10/08/23 04:29 Urine Ketones 1+ (Negative) H 10/08/23 04:29 Urine Blood Neg (Negative) 10/08/23 04:29 Urine Nitrate Negative (Negative) 10/08/23 04:29 Urine Bilirubin Neg (Negative) 10/08/23 04:29 Urine Urobilinogen Neg mg/dL (Negative) 10/08/23 04:29 Ur Leukocyte Esterase Negative (Negative) 10/08/23 04:29 Ur Random Sodium 12 mmol/L 10/08/23 04:29 Urine Opiates Screen Negative ng/mL (Negative) 10/08/23 09:50 Ur Barbiturates Screen Negative ng/mL (Negative) 10/08/23 09:50 Ur Phencyclidine Scrn Negative ng/mL (Negative) 10/08/23 09:50 Ur Amphetamines Screen Negative ng/mL (Negative) 10/08/23 09:50 U Benzodiazepines Scrn Negative ng/mL (Negative) 10/08/23 09:50 Urine Cocaine Screen Negative ng/mL (Negative) 10/08/23 09:50 U Marijuana (THC) Screen Negative ng/mL (Negative) 10/08/23 09:50 Ethyl Alcohol < 10 mg/dL (0-10) 10/08/23 08:13 Coronavirus 229E (PCR) Not detected (NOT DETECT) 10/07/23 22:55 Hepatitis A IgM Ab Non-reactive (Nonreactive) 10/07/23 20:11 Hep Bs Antigen Non-reactive (Nonreactive) 10/07/23 20:11 Hep B Core IgM Ab Non-reactive (Nonreactive) 10/07/23 20:11 Hepatitis C Antibody Non-reactive (Nonreactive) 10/07/23 20:11 Influenza Type A Ag negative (Negative) 10/07/23 20:21 Influenza Type B Ag negative (Negative) 10/07/23 20:21 SARS-CoV-2 (PCR) Not detected (NOT DETECT) 10/07/23 22:55 SARS-CoV-2 Ag (Rapid) negative (Negative) 10/07/23 20:21 Vitals Last Vital Signs Temp 98.5 F 10/11/23 07:17 Pulse 108 H 10/11/23 07:17 Resp 15 10/11/23 07:17 BP 137/93 10/11/23 07:17 Pulse Ox 98 10/11/23 07:17 O2 Del Method Room Air 10/11/23 04:00 Discharge Plan Discharge Patient Disposition: Home Condition: Stable Prescriptions: New folic acid 1 mg Tablet 1 mg PO DAILY 30 Days Qty: 30 0RF sodium chloride 1,000 mg Tablet,Soluble 1,000 mg PO BID 30 Days Qty: 60 0RF Vitamin B-1 (mononitrate) 100 mg Tablet 100 mg PO DAILY 30 Days Qty: 30 0RF pantoprazole 40 mg tablet,delayed release (DR/EC) 40 mg PO DAILY 28 Days Qty: 30 0RF verapamil 120 mg tablet extended release 120 mg PO DAILY Qty: 30 0RF Continued metoprolol tartrate 25 mg tablet 25 mg PO BEDTIME 90 Days Qty: 90 0RF Held lisinopril 20 mg tablet See Rx Instructions .ROUTE .COMPLEX Qty: 60 0RF Hold Instructions: Resume on 11/09/23. Hold until instructed to take by PCP or cardiology. Dose Instruction: Take 1 tablet by mouth once daily Rx Instructions: Take 1 tablet by mouth once daily Discontinued hydrochlorothiazide 25 mg tablet See Rx Instructions .ROUTE .COMPLEX Qty: 90 1RF Dose Instruction: Take 1 tablet by mouth once daily Rx Instructions: Take 1 tablet by mouth once daily Discharge Orders: Discharge Order (Routine); Ordered 10/11/23 Ordered By: Mingo Romero Referrals: CARDIOLOGY [Provider Group] - 11/25/23 12:30 pm () Dell Villalobos FNP [Primary Care Provider] - 10/15/23 1:00 pm Discharge Diet: Advance as tolerated and Usual diet Discharge Activity: Resume usual activity and Increase activity as tolerated Patient Instructions: Verapamil (By mouth), Thiamine (By mouth), Folic Acid (By mouth), Pantoprazole (By mouth) (Protonix), Sodium Chloride (By mouth), Hypertrophic Cardiomyopathy (DC), Hyponatremia (DC), Thrombocytopenia (DC), Opioid Safety Activity Restrictions/Additional Instructions: 1. Increase activity as tolerated 2. Keep blood pressure log. 3. Hold lisinopril until follow-up with cardiology or PCP with blood pressure log. 4. Alcohol cessation. 4. Tobacco cessation. Discharge Attestations Time Spent in Discharge Care*: greater than 30 min Quality Metrics Clinical Quality Measures [ No reported AMI, CVA or VTE this stay] Coding Level of Care Code Acute Code for g [facility]wd Diagnoses Hyponatremia E87.1
--- NOTE | 2023-10-11 09:42 | P.PN_ITS ---
Subjective 2 Subjective: no new complaints Medications: Reviewed: Yes Vitals/I&O/Wt Last Vital Signs Temp 98.5 F 10/11/23 07:17 Pulse 108 H 10/11/23 07:17 Resp 15 10/11/23 07:17 BP 137/93 10/11/23 07:17 Pulse Ox 98 10/11/23 07:17 O2 Del Method Room Air 10/11/23 04:00 10/10/23 10/11/23 10/11/23 22:59 06:59 14:59 Intake Total 240 / 558 Output Total 0 / 200 0 / 200 Balance 240 / 358 0 / 358 Weight last 48 hrs Weight 75.041 kg Physical Exam 2 Const: COMMON NORMALS: no acute distress and alert Extremity: NARRATIVE EXTREMITY EXAM: no edema Neuro: SENSORIUM/ORIENTATION: Yes alert Data 10/11/23 03:20 10/11/23 03:20 A&P Assessment and plan (1) Hyponatremia: Plan 1. Hyponatremia, chronic, likely SIADH, worsened by recent N/V/D, Hctz Increase NaCl to 1 g TID, fluid restrict, added furosemide 20 mg daily Do not resume Hctz Na improved to 127, continue to monitor Attestations 2 Medical Necessity Statement*: per rosie Coding Level of Care Code Acute Code for [facility] Fwd Diagnoses Hyponatremia E87.1
[2023-10-11] MEDS: heparin 5,000 unit/mL INJ 1 mL 5000 UNIT SUBCUT (10:55)
[2023-10-11 14:30] LABS: Osmolality Urine 265 mOsm/kg (50-1200)
== END 2023-10-11 16:01 | disposition home or self-care (01) | DRG 644 ==
LOC: ER 21:20 → ICU 21:41 → CSU 10-10 14:17
PROVIDERS: Family Medicine; Hospitalist; Admitting Provider Internal Medicine; Emergency Provider Emergency Medicine; PCP Registered Nurse; Visit Provider Internal Medicine
DX: E22.2 Syndrome of inappropriate secretion of antidiuretic hormone (principal); I42.1 Obstructive hypertrophic cardiomyopathy; K52.9 Noninfective gastroenteritis and colitis, unspecified; K70.10 Alcoholic hepatitis without ascites; F10.10 Alcohol abuse, uncomplicated; I10 Essential (primary) hypertension; F17.210 Nicotine dependence, cigarettes, uncomplicated; E83.42 Hypomagnesemia; E87.6 Hypokalemia; D69.59 Other secondary thrombocytopenia; R79.89 Other specified abnormal findings of blood chemistry; R00.0 Tachycardia, unspecified; Z11.52 Encounter for screening for COVID-19
CPT/HCPCS: 36415; 70450; 71045; 76705; 80053; 80061; 80074; 80306; 80307; 81003; 82550; 83605; 83690; 83735; 83880; 83935; 84145; 84295; 84300; 84443; 84484; 85018; 85025; 85610; 86140; 87426; 87635; 87804; 93005; 93306; 96372; 96376; 97110; 97116; 97161; 99285; C9113; J1644; J1940; J2405; J3411; J3475; J7030; J7070; J7131; P9046; Q3014

== ENCOUNTER → 2023-10-18 11:52 | Outpatient (BNVA) | payer MEDICAID, SELFPAY | PROVIDERS: PCP Registered Nurse; Visit Provider Registered Nurse | DX: E87.1 Hypo-osmolality and hyponatremia (principal) | CPT/HCPCS: 80053 ==

== ENCOUNTER → 2023-11-10 09:54 | Outpatient (BNVA) | payer MEDICAID, SELFPAY | PROVIDERS: PCP Registered Nurse; Visit Provider Registered Nurse | DX: I73.9 Peripheral vascular disease, unspecified (principal) | CPT/HCPCS: 80053; 85025; 86140 ==

== ENCOUNTER → 2023-12-17 12:00 | Outpatient (BNVA) | payer MEDICAID, SELFPAY | PROVIDERS: PCP Registered Nurse; Visit Provider Registered Nurse | DX: M71.30 Other bursal cyst, unspecified site (principal); I73.9 Peripheral vascular disease, unspecified | CPT/HCPCS: 80503; 89051 ==

== ENCOUNTER → 2024-01-24 15:06 | Outpatient (BNVA) | payer MEDICAID, SELFPAY | PROVIDERS: PCP Registered Nurse; Visit Provider Registered Nurse | DX: R82.90 Unspecified abnormal findings in urine (principal); I10 Essential (primary) hypertension; N39.0 Urinary tract infection, site not specified; M1A.09X1 Idiopathic chronic gout, multiple sites, with tophus (tophi); R35.0 Frequency of micturition; Z71.3 Dietary counseling and surveillance | CPT/HCPCS: 80053; 81000; 85025; 87086 ==

== ENCOUNTER → 2024-03-14 09:58 | Outpatient (BNVA) | payer MEDICAID, SELFPAY | PROVIDERS: PCP Registered Nurse; Visit Provider Registered Nurse | DX: I10 Essential (primary) hypertension (principal); E87.1 Hypo-osmolality and hyponatremia; D50.8 Other iron deficiency anemias | CPT/HCPCS: 80048; 85025 ==

== ENCOUNTER → 2024-03-23 10:17 | Outpatient (BNVA) | payer MEDICAID, SELFPAY | PROVIDERS: PCP Registered Nurse; Visit Provider Registered Nurse | DX: Z01.419 Encounter for gynecological examination (general) (routine) without abnormal findings (principal) | CPT/HCPCS: 87624 ==

== ENCOUNTER 2024-03-28 16:58 | Outpatient (CLI) | payer MEDICAID, SELFPAY ==
--- NOTE | 2024-03-28 15:30 | CT_ITS ---
WS: [id number] LDCT LUNG CANCER SCREENING HISTORY: Z12.2 - Encounter for screening for malignant neoplasm of... TECHNIQUE: Axial imaging performed from the apices to 1 cm below the costophrenic angles. Coronal and sagittal reformats are submitted with axial MIP series. All CT scans at [facility] use at least one of these dose optimization techniques: automated exposure control; mA and/or kV adjustment per patient size (includes targeted exams where dose is matched to clinical indication); or iterativ e reconstruction. DLP: 57.30 mGy.cm DIvol: Mean CTDIvol: 1.10 (mGy) COMPARISON: None available. Diagnostic quality: Satisfactory Lungs: Normally aerated. No mass or nodule. No endobronchial lesion. Heart: Normal size heart with no pericardial effusion.. Other findings: Mild atherosclerosis aorta. Normal size pulmonary artery. No adenopathy. No adrenal m ass. CT/CT lung screening [id number] IMPRESSION: LUNG-RADS: 1-Negative FOLLOW UP: 12 Month: Continue annual screening with LDCT OTHER FINDINGS (S MODIFIER): None.
== END 2024-03-28 16:59 | disposition home or self-care (01) ==
LOC: RAD 16:58
PROVIDERS: PCP Registered Nurse; Visit Provider Registered Nurse
DX: Z12.2 Encounter for screening for malignant neoplasm of respiratory organs (principal); F17.210 Nicotine dependence, cigarettes, uncomplicated; I70.0 Atherosclerosis of aorta
CPT/HCPCS: 71271

== ENCOUNTER 2024-04-05 13:13 | Outpatient (CLI) | payer MEDICAID, SELFPAY ==
--- NOTE | 2024-04-05 13:15 | MM_ITS ---
WS: [id number] BILATERAL 3D TOMOSYNTHESIS DIGITAL SCREENING MAMMOGRAPHY WITH CAD CLINICAL INFORMATION: SCREENING HISTORY: Screening mammogram. No current complaints. COMPARISON: 2021 TECHNIQUE: Bilateral CC and MLO views. FINDINGS: Scattered fibroglandular densities bilaterally. No suspicious focal mass, asymmetry, calcifications, or architectural distortion. No evidence of malignancy. Vascular calcification. MM/[place] [id number] IMPRESSION: BI-RADS: 2-Benign FOLLOW UP: 1 Year Follow-up Recommend return to annual screening mammography.
--- NOTE | 2024-04-05 13:15 | XR_ITS ---
WS: [id number] SCREENING DEXA SCAN [employer] CLINICAL INFORMATION: POSTMENOPAUSAL OSTEOPOROSIS COMPARISON: None. FINDINGS: The L1-L4 bone mineral density measures 0.897 g/cm2. This corresponds to a T score score of -2.4 and Z score of -1.4. Left femoral neck bone mineral density measures 0.794 g/cm2. This corresponds to a T score of -1.7 an d Z score of -0.9. Right femoral neck bone mineral density measures 0.794 g/cm2. This corresponds to a T score -1.7of an d Z score of -0.9. Mean femoral neck bone mineral density measures 0.794 g/cm2. This corresponds to a T score of -1.7 an d Z score of -0.9. XR/XR DEXA axial skeleton* [id number] IMPRESSION: Osteopenia lumbar spine approaching osteoporosis. Osteopenia femoral necks. Patient's FRAX calculated 10 year probability for major osteoporotic fracture i s 10.0% and osteoporotic hip fracture is 2.1%.
== END 2024-04-05 13:14 | disposition home or self-care (01) ==
LOC: RAD 13:13
PROVIDERS: PCP Registered Nurse; Visit Provider Registered Nurse
DX: Z78.0 Asymptomatic menopausal state (principal); M85.88 Other specified disorders of bone density and structure, other site; Z12.31 Encounter for screening mammogram for malignant neoplasm of breast; R92.323 Mammographic fibroglandular density, bilateral breasts
CPT/HCPCS: 77063; 77067; 77080

== ENCOUNTER → 2024-11-08 11:16 | Outpatient (BNVA) | payer MEDICAID, SELFPAY | PROVIDERS: PCP Registered Nurse; Visit Provider Registered Nurse | DX: R42 Dizziness and giddiness (principal) | CPT/HCPCS: 80048; 85025 ==